=== PATIENT | male | born 1950 | race Caucasian/White ===

== ENCOUNTER → 2017-04-11 | Outpatient (CLI) | payer BC | LOC: FIMAGING 09:45 | PROVIDERS: ATTEND Neurological Surgery | DX: M51.36 Other intervertebral disc degeneration, lumbar region (principal); M25.78 Osteophyte, vertebrae ==

== ENCOUNTER 2017-04-19 07:30 | Inpatient (IN) | payer BC, OTHER ==
[~2017-04-19 07:30] MED LIST: TRANEXAMIC ACID 1,000 MG in NS 100 ML IV ONE
[2017-04-19] MEDS ORDERED: morphINE PF 5 MG/10 ML INJ IT ONE (07:51)
[2017-04-19] MEDS ORDERED: ACETAMINOPHEN 500 MG TAB PO ONE (07:51)
[2017-04-19] MEDS ORDERED: fentaNYL 100 MCG/2 ML INJ IT ONE (07:51)
[2017-04-19] MEDS ORDERED: GABAPENTIN 300 MG CAP PO ONE (07:51)
[2017-04-19] MEDS ORDERED: LIDOCAINE 1% 2 ML INJ ID PRN (07:52)
[2017-04-19] MEDS ORDERED: LR 1,000 ML IV ONE (07:52)
[2017-04-19] MEDS ORDERED: THROMBIN (BOVINE) 20,000 UNIT VIAL TP ONE (08:11)
[2017-04-19] MEDS ORDERED: BUPIVACAINE 0.25% 30 ML SDV ONE ×3 (08:12→16:36)
[2017-04-19] MEDS ORDERED: fentaNYL 100 MCG/2 ML INJ ONE ×6 (08:12→19:30)
[2017-04-19] MEDS ORDERED: CITRATE DEXTROSE SOLN 500 ML BAG ONE ×3 (08:12→16:00)
[2017-04-19] MEDS ORDERED: BACITRACIN 50,000 UNITS/10 ML SYR IRR ONE ×4 (08:13→16:21)
--- NOTE | 2017-04-19 08:14 | PDANEPAE ---
ANE History of Present Illness 66 year old male w/ PMHx of HTN (on Carvedilol), history of bilateral lower extremity edema (on lasix), obesity, FARRAH (on BiPAP), skin cancer (s/p Mohs), restless leg syndrome, gout & lumbar radiculopathy presents for TLIF, laminectomy, fusion for L2-L5. ANE Past Medical History - Cardiovascular History Hx Hypertension: Yes Hx Arrhythmias: No Hx Chest Pain: No Hx Coronary Artery / Peripheral Vascular Disease: No Hx CHF / Valvular Disease: No Hx Palpitations: No Cardiovascular History Comment: TY LOWER EXT SWELLING - Pulmonary History Hx COPD: No Hx Asthma/Reactive Airway Disease: No Hx Recent Upper Respiratory Infection: No Hx Oxygen in Use at Home: No Hx Sleep Apnea: Yes Pulmonary History Comment: FARRAH USES B-PAP INSTRUCTED TO BRING DOS - Neurologic History Hx Cerebrovascular Accident: No Hx Seizures: No Hx Dementia: No Neurologic History Comment: Benign positional vertigo. Restless Leg Syndrome - Endocrine History Hx Diabetes: No Hypothyroid: No Hyperthyroid: No Obesity: moderate - Renal History Hx Renal Disorders: No - Liver History Hx Hepatic Disorders: No - Neurological & Psychiatric Hx Hx Neurological and Psychiatric Disorders: No - Cancer History Hx Cancer: Yes Cancer History Comment: SKIN-RECENT LT ANKLE MOH'S PROCEDURE - Congenital Disorder History Hx Congenital Disorders: No - GI History GERD: no Hx Gastrointestinal Disorders: No - Other Health History Other Health History: RESTLESS LEG. GOUT - Chronic Pain History Chronic Pain: Yes (RT UPPER HIP AND THIGH) - Surgical History Prior Surgeries: RT CATARACT. LT ANKLE MOH'S PROCEDURE. 2 LUMBAR LAMINECTOMY. COLONOSCOPY. LEFT TOTAL KNEE 2004 ANE Review of Systems Review of Systems: - Exercise capacity Exercise capacity: >=4 METS METS (RN): 4 METS - Systems Neurological: Reports: paresthesia (Numbness / tingling / pain mostly on right low back) ANE Patient History - Allergies Allergies/Adverse Reactions: codeine Allergy (Verified 04/18/17 12:06) NAUSEA Sulfa (Sulfonamide Antibiotics) Allergy (Verified 04/18/17 12:06) Rash - Home Medications Home medications: home medication list seen and reviewed Home Medications: Escitalopram Oxalate [Lexapro 10 MG (RX)] 10 mg PO DAILY06 11/09/11 [Last Taken 04/19/17] Eszopiclone [Lunesta] 3 mg PO HS 11/09/11 [Last Taken 04/18/17] Glucosamine Sulfate Dipot Chlr [Glucosamine] mg PO DAILY 11/09/11 [Last Taken ] Multivitamin [Flintstones] 1 each PO DAILY 11/09/11 [Last Taken 04/15/17] Pramipexole Di-HCl [Mirapex ER] mg PO BID 11/09/11 [Last Taken 04/19/17] Allopurinol DAILY06 04/18/17 [Last Taken 04/19/17] Aspirin 81mg (*) DAILY 04/18/17 [Last Taken 04/12/17] Atorvastatin Calcium HS 04/18/17 [Last Taken 04/18/17] Carvedilol BID 04/18/17 [Last Taken 04/19/17] Furosemide BID 04/18/17 [Last Taken 04/19/17] - NPO status NPO Status: no food or drink >8 hours - Anes Hx Anes Hx: no prior problems - Smoking Hx Smoking Status: Never smoked Marijuana use: No - Alcohol Use Alcohol Use: Occasionally - Family Anes Hx Family Anes Hx: neg - N/A ANE Labs/Vital Signs - Labs Result Diagrams: 04/19/17 08:30 04/19/17 08:30 - Vital Signs Vital Signs: reviewed preoperatively; see RN documention for details Height: 185.42 cm Weight: 133.81 kg ANE Physical Exam - Airway Neck exam: FROM, increased neck circumference Mallampati Score: Class 2 Mouth exam: guardado Mouth image: 1 - Small inferior lateral tooth defect - Pulmonary Pulmonary: no respiratory distress - Cardiovascular Cardiovascular: regular rate and rhythym - ASA Status ASA Status: III ANE Anesthesia Plan Anesthesia Plan: general endotracheal anesthesia Lines/Monitors: arterial line Total IV Anesthesia: No
[2017-04-19] MEDS ORDERED: REMIFENTANIL HCL 1 MG VIAL ONE ×10 (08:26→16:50)
[2017-04-19] MEDS ORDERED: PROPOFOL/EMULSION 500 MG/50 ML BOTTLE IV ONE ×10 (08:26→16:50)
[2017-04-19] MEDS ORDERED: PROPOFOL 200 MG/20 ML VIAL ONE (08:26)
[2017-04-19] MEDS ORDERED: TRANEXAMIC ACID 1,000 MG in NS 100 ML IV ONE (08:45)
[2017-04-19 08:52] LABS: PLATELET COUNT 159 10^3/uL (150-400)
[2017-04-19] MEDS ORDERED: MIDAZOLAM 2 MG/2 ML VIAL IVP ONE (08:55)
[2017-04-19] MEDS ORDERED: LIDOCAINE 2% 5 ML SDV ONE (09:00)
[2017-04-19] MEDS ORDERED: ROCURONIUM 50 MG/5 ML VIAL ONE (09:00)
[2017-04-19] MEDS ORDERED: PHENYLEPHRINE 10 MG/ML SDV ONE (09:02)
[2017-04-19] MEDS: ceFAZolin 2 GM/SWFI 2 GM/20 ML SYR IVP ONE ×2 (09:57→11:04)
[2017-04-19] MEDS ORDERED: PHENYLEPHRINE HCL 100 MCG/ML SYR ONE (09:59)
[2017-04-19] MEDS ORDERED: epHEDrine SULFATE 10 MG/ML SYR ONE (09:59)
[2017-04-19] MEDS ORDERED: TRANEXAMIC ACID 3,000 MG/50 ML BAG IRR ONE (11:14)
--- NOTE | 2017-04-19 12:02 | PDHPUP ---
History & Physical Update H&P update statement: This history and physical update is based on an assessment of the patient which was completed after admission or registration (within 24 hours), but prior to the surgery/procedure. H&P update: no change in patient's condition since H&P completed
[2017-04-19] MEDS ORDERED: TRANEXAMIC ACID 1,000 MG/10 ML VIAL ONE (12:10)
[2017-04-19] MEDS ORDERED: ceFAZolin 1 GM VIAL ONE ×3 (12:10)
[2017-04-19] MEDS ORDERED: ONDANSETRON 4 MG/2 ML VIAL IVP PRN ×2 (14:26→17:34)
[2017-04-19] MEDS ORDERED: NALOXONE HCL 0.4 MG/ML INJ IVP PRN ×2 (14:26→17:34)
[2017-04-19] MEDS ORDERED: LR 500 ML IV PRN (14:26)
[2017-04-19] MEDS ORDERED: OXYCODONE/APAP 5/325 TAB PO PRN (14:26)
[2017-04-19] MEDS ORDERED: ceFAZolin 2 GM/SWFI 20 ML SYR IVP ONE (14:58)
[2017-04-19] MEDS ORDERED: HYDROmorphONE/DILAUDID 2 MG/ML INJ ONE (17:04)
[2017-04-19] MEDS ORDERED: BACITRACIN ZINC 14.2 GM OINTTUBE TP ONE (17:33)
--- NOTE | 2017-04-19 17:33 | POSTOPPROG ---
Post Op Note Date of Operation: 04/19/17 Surgeon: Phoenix Merino [facility] Nurse Practitioner: Jamison Anesthesiologist: Nain Anesthesia: GET(General Endotracheal) Pre-op Diagnosis: Lumbar DJD/stenosis, L2-5 Post-op Diagnosis: same Indication: right quad weakness, back pain Procedure: T12-L5 fusion, L2/3,3/4,4/5 TLIF Findings: severe DJD/stenosis Inf/Abcess present in the surg proc area at time of surgery?: No EBL: 500-1000 Complications: None Drains: Jose Martin Tai (to bulb suction)
[2017-04-19] MEDS ORDERED: PROMETHAZINE HCL 25 MG/ML INJ IVP PRN (17:34)
[2017-04-19] MEDS ORDERED: HYDROmorphONE/DILAUDID 1 MG/ML INJ IVP PRN (17:34)
--- NOTE | 2017-04-19 17:55 | SOAPPROG ---
SOAP Progress Note Assessment/Plan: POST OP CHECK: Assessment: doing well SP T12-L5 fusion Plan: CPM in PACU and transfer to floor per protocol PANKAJ to bulb suction transfer to floor per protocol 04/19/17 17:52 Subjective: eyes open, groggy. Objective: Vital Signs Temp Pulse Resp BP Pulse Ox 69 16 135/75 H 93 04/19/17 07:57 04/19/17 07:57 04/19/17 07:57 04/19/17 07:57 Laboratory Results 04/19/17 08:30 04/19/17 08:30 Vitals: BP: 144/61 HR: 56 O2: 98% Neuro: PERRLA Moving both feet to stimulation, sens +LT follows commands with prompting, slowly ICD10 Worksheet Patient Problems: Problems Problem Status Onset Lumbar canal stenosis Acute - ICD10 Problem Qualifiers (1) Lumbar canal stenosis
[2017-04-19] MEDS ORDERED: HYDROmorphONE/DILAUDID 1 MG/ML INJ ONE (18:08)
[2017-04-19] MEDS: fentaNYL 100 MCG/2 ML INJ IVP PRN ×3 (18:09→19:32)
[2017-04-19] MEDS: HYDROmorphONE/DILAUDID 1 MG/ML INJ IVP PRN ×5 (18:14→19:18)
--- NOTE | 2017-04-19 18:14 | GOP ---
[f rep st] OPERATIVE REPORT DATE OF OPERATION: 04/19/2017 SURGEON: Phoenix Merino MD ADAPTIVE PHYSICAL EDUCATION SPECIALIST: Chris Swift, DOLORES. ANESTHESIA: General endotracheal. PREOPERATIVE DIAGNOSIS: 1. Intractable low back pain. 2. Right greater than left lower extremity radiculopathy with profound quadriceps weakness. 3. Failed conservative care with progressive degenerative scoliosis with critical spinal stenosis an d lateral recess impingement. 4. Loss of normal sagittal alignment with relative kyphosis of the lumbar spine. POSTOPERATIVE DIAGNOSIS: 1. Intractable low back pain. 2. Right greater than left lower extremity radiculopathy with profound quadriceps weakness. 3. Failed conservative care with progressive degenerative scoliosis with critical spinal stenosis an d lateral recess impingement. 4. Loss of normal sagittal alignment with relative kyphosis of the lumbar spine. PROCEDURE PERFORMED: 1. Redo L2-3, L3-4, and L4-5 laminectomies and far lateral transpedicular decompressions for decompr ession of bilateral neural foramen/nerve roots, central canal, and thecal sac. 2. T12 through L5 posterior segmental (pedicle screw and axle device) fixation and posterolateral fu sangeeta with local autograft and bone morphogenic protein. 3. L2-3, L3-4, and L4-5 posterior/transforaminal lumbar interbody fusion with 2 structural PEEK inte rbody spacers, local autograft, and bone morphogenic protein at each level. 4. Use of intraoperative microscopy, fluoroscopy, and computer volumetric stereotactic navigation wi th intraoperative neurophysiologic testing. 5. Injection of intrathecal narcotic analgesics. 6. Subcutaneous and intramuscular local anesthesia for postoperative pain control. FINDINGS: ESTIMATED BLOOD LOSS: 700 cc. INDICATIONS: The patient is a morbidly obese 66-year-old man with intractable low back pain and righ t greater than left lower extremity radicular discomfort and profound right leg weakness with a histo ry of a multilevel lumbar laminectomy from L2-L5 resulting in instability and iatrogenic and degenera tive scoliosis with critical spinal stenosis, lateral recess impingement, and loss of normal sagittal alignment with relative kyphosis of his lumbar spine. He presents now for multilevel surgical decom pression, stabilization, and realignment. DESCRIPTION OF PROCEDURE: After informed consent was obtained, the patient was taken to the operatin g room and placed in the prone position on the Jose Martin table. The thoracolumbosacral areas were prep ped and draped in a sterile fashion. After fluoroscopic localization of the correct levels, the subc utaneous and intramuscular tissues were infiltrated with local anesthesia. A midline linear incision was then created from approximately T12-L5. This was carried down to the fascial layer, which was t hen incised using monopolar electrocautery and carried in a subperiosteal plane along the spinous pro cesses and out the lamina bilaterally. Note that there was an extensive amount of scar tissue and di storted anatomy as well as the morbid obesity that made it an extremely difficult and time consuming exposure, but I was able to eventually dissect out the proper anatomy and following this, brought in the microscope and performed right-sided far lateral transpedicular decompressions with redo laminect omies from L2-L5. Again, there was an extensive amount of scar tissue, and this required very meticu lous dissection under high-power microscopy, but I was able to achieve an excellent central canal dec ompression as well the lateral recesses and neural foramen with complete unroofing of the facet joint s at L2-3, L3-4, and L4-5 on the right. This was much more extensive than that required for the whipple sforaminal lumbar interbody fusion, but it was necessary to achieve adequate decompression. Followin g this, the microscope was removed and the O-arm neuronavigational system brought in and using comput er volumetric stereotactic navigation, pedicle screws were placed at T12, L1, L2, L3, L4, and L5 bila terally. Each individual screw was tested neurophysiologically with monopolar electrode stimulation and interpretation of the potentials by the surgeon. Individual rods were then placed, first at L4-5 , then at L3-4, then at L2-3, during which time, distraction was created across the interspaces and c omplete diskectomies were performed with preparation of endplates and placement of 2 structural PEEK interbody spacers, local autograft, and bone morphogenic protein at each level for L2-3, L3-4, and L4 -5 posterior/transforaminal lumbar interbody fusions. The small rods were then removed and new rods with maximal lordosis were placed from T12 through L5 with an attempt to recreate as much lordosis as we could without doing an osteotomy. The locking caps were engaged and torqued to the proper specif ication per the edge sander, and an axial device was placed at the T12-L1 level in order to prevent a junctional kyphosis and hardware loosening. Duramorph 200 mcg along with 50 mcg of fentanyl were i njected intrathecally. The remaining local autograft and bone morphogenic protein was then placed ou t laterally from T12 through L5 after extensive decortication of the facet joints and any remaining l caleb EN and transverse processes. Following this, a drain was placed. Meticulous hemostasis was ac hieved. The wound was copiously irrigated with antibiotic irrigation and closed in a layered fashion using interrupted Vicryl sutures followed by Steri-Strips on the skin. COMPLICATIONS: None. DISPOSITION: The patient is currently in the process of being repositioned for extubation. /[id number]/MODL
--- NOTE | 2017-04-19 19:40 | PDHOSCONS ---
Hospitalist Consult Hospitalist Consult: We have been asked to consult on this pt by Dr. Merino for medical management. He is a 66 yo M with MMP including chronic low back pain who earlier today had T12-L5 fusion. He has a hx of obesity, well controlled HTN, pedal edema of unclear etiology on Lasix, Gout, depression, FARRAH on CPAP HS. History is obtained from the medical chart as well as the pt's daughter who is an ICU nurse at [employer] [employer]. He is seen postoperatively and is not able to provide this history. He is on a Coreg and Lasix and other medications. Unfortunately, we do not know dosages at this time. She will be providing these to us sometime tonight. She reports a long hx of FARRAH and CPAP use, says HTN has been well controlled. She does report intermittent leg swelling for quite some time. ROS: unable to obtain PMHx: Per above PSH: Total knee - left, L2/L5 laminectomy, cataracts SocHx: No T/E/I FmHx: NC Labs/Studies: CBC unremarkable BMP: unremarkable Exam: VSS APPEARS TO BE IN PAIN PEERL No obvious JVD RRR Decrease lung sounds obese, NT/ND Trace LE edema Mildly sedated skin warm #s/p T12-L5 fusion #HTN #Pedal Edema #FARRAH, CPAP #Depression Plan: -we will wait until the medication list is completed and we can restart BB and diuretics as needed -Hold Aspirin -Antidepressant has already been restarted, make sure to continue this. Per the daughter he becomes severely depressed if he does not take it daily -check TTE given hx of pedal edema, FARRAH, and no reported past Echo -post op care per primary -Pain mgmt -DVT proph per primary Thank you for this consult. We will follow along with you.
[2017-04-19] MEDS: HYDROmorphone HCL/NS/PF 0.4 MG/2 ML SYR IVP PRN ×2 (20:11→21:13)
[2017-04-19] MEDS ORDERED: DIAZEPAM 10 MG/2 ML SYR IVP PRN (20:40)
[2017-04-19] MEDS: NS 1,000 ML IV SCH (21:13)
[2017-04-19] MEDS: ceFAZolin 2 GM/DEXTROSE 100 ML IV SCH (23:08)
[2017-04-19] MEDS: HYDROmorphONE/DILAUDID 6 MG/30 ML PCA IV PRN (23:24)
[2017-04-20] MEDS: ESCITALOPRAM OXALATE 10 MG TAB PO SCH (05:47)
[2017-04-20] MEDS: ceFAZolin 2 GM/DEXTROSE 100 ML IV SCH ×2 (05:47→14:45)
--- NOTE | 2017-04-20 07:54 | SOAPPROG ---
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 - medicine assistance appreciated for management of medical problems - LSO brace when OOB - post-op xrays today - drain output 430 yesterday, will leave another day - PT/OT, rehab eval - please call with any new neurologic changes 04/20/17 07:51 Subjective: has some complaints of ulnar numbness on both hands, likely positioning related Objective: Vital Signs Temp Pulse Resp BP Pulse Ox 36.7 C 65 18 146/88 H 97 04/20/17 05:33 04/20/17 05:33 04/20/17 05:33 04/20/17 05:33 04/20/17 05:33 Laboratory Results 04/19/17 08:30 04/19/17 08:30 04/19/17 04/20/17 04/21/17 05:59 05:59 04:59 Intake Total 4475 Output Total 2740 100 Balance 1735 -100 AAOx3, full strength and sensation except some numbness in bilateral ulnar distribution in hands, dressings c/d/i - Pending Discharge Pending Discharge Within 24 Hours: No Pending Discharge Within 48 Hours: Yes Pending Discharge Date: 04/22/17 Pending Discharge Time: 11:00 ICD10 Worksheet Patient Problems: Problems Problem Status Onset Lumbar canal stenosis Acute
--- NOTE | 2017-04-20 07:54 | SOAPPROG ---
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 - medicine assistance appreciated for management of medical problems - LSO brace when OOB - post-op xrays today - drain output 430 yesterday, will leave another day - PT/OT, rehab eval - please call with any new neurologic changes 04/20/17 07:51 Subjective: has some complaints of ulnar numbness on both hands, likely positioning related Objective: Vital Signs Temp Pulse Resp BP Pulse Ox 36.7 C 65 18 146/88 H 97 04/20/17 05:33 04/20/17 05:33 04/20/17 05:33 04/20/17 05:33 04/20/17 05:33 Laboratory Results 04/19/17 08:30 04/19/17 08:30 04/19/17 04/20/17 04/21/17 05:59 05:59 04:59 Intake Total 4475 Output Total 2740 100 Balance 1735 -100 AAOx3, full strength and sensation except some numbness in bilateral ulnar distribution in hands, dressings c/d/i - Pending Discharge Pending Discharge Within 24 Hours: No Pending Discharge Within 48 Hours: Yes Pending Discharge Date: 04/22/17 Pending Discharge Time: 11:00 ICD10 Worksheet Patient Problems: Problems Problem Status Onset Lumbar canal stenosis Acute
--- NOTE | 2017-04-20 07:54 | SOAPPROG ---
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 - medicine assistance appreciated for management of medical problems - LSO brace when OOB - post-op xrays today - drain output 430 yesterday, will leave another day - PT/OT, rehab eval - please call with any new neurologic changes 04/20/17 07:51 Subjective: has some complaints of ulnar numbness on both hands, likely positioning related Objective: Vital Signs Temp Pulse Resp BP Pulse Ox 36.7 C 65 18 146/88 H 97 04/20/17 05:33 04/20/17 05:33 04/20/17 05:33 04/20/17 05:33 04/20/17 05:33 Laboratory Results 04/19/17 08:30 04/19/17 08:30 04/19/17 04/20/17 04/21/17 05:59 05:59 04:59 Intake Total 4475 Output Total 2740 100 Balance 1735 -100 AAOx3, full strength and sensation except some numbness in bilateral ulnar distribution in hands, dressings c/d/i - Pending Discharge Pending Discharge Within 24 Hours: No Pending Discharge Within 48 Hours: Yes Pending Discharge Date: 04/22/17 Pending Discharge Time: 11:00 ICD10 Worksheet Patient Problems: Problems Problem Status Onset Lumbar canal stenosis Acute
[2017-04-20 07:59] LABS: PLATELET COUNT 158 10^3/uL (150-400)
[2017-04-20] MEDS: ENOXAPARIN 40 MG/0.4 ML SYR SC SCH (09:47)
[2017-04-20] MEDS: METHOCARBAMOL 750 MG TAB PO SCH ×3 (09:47→22:24)
[2017-04-20] MEDS: ACETAMINOPHEN 325 MG TAB PO PRN ×2 (09:48→16:03)
[2017-04-20] MEDS: morphINE SR 15 MG TAB PO SCH ×2 (09:52→22:25)
--- NOTE | 2017-04-20 10:09 | ECHO ---
[email or web address] [address] [address] Main: [phone] Fax: Transthoracic Echocardiogram Name: ALEXANDRA BAER MR#: [id number] Study Date: 04/20/2017 Study Time: 09:03 AM Date of : 1950 Age: 66 year(s) Height: 185.4 cm (73 in.) Weight: 133.81 kg (295 lb.) BSA: 2.54 m2 Gender: Male Examination: Echo Indication: ?CHF Image Quality: Technically Difficult Contrast: Requested by: Grabiel Joseph BP: 132 mmHg/74 mmHg Heart Rate: Rhythm: Indication: ?CHF Procedure Staff Public Affairs Specialist: Frieda Joseph Reading Physician: Jeet Trammell Requesting Provider: Conclusions: Normal global systolic LV function. EF is 61 %. Unable to assess diastolic dysfunction. Mitral valve not well visualized. Aortic valve is not well visualized. Tricuspid valve not well visualized. Pulmonary valve not well visualized. Technically difficult study, cannot rule out regional wall motion abnormalities. Measurements: Chambers Valvular Assessment AV/MV Valvular Assessment TV/PV Normal Normal Normal Name Value Range Name Value Range Name Value Range Ao Eve (MM): 3.3 cm (2.2 cm-3.7 AV Vmax: 1.01 m/s (1 m/s-1.7 PV Vmax: 1.01 m/s (0.6 m/s-0.9 cm) m/s) m/s) IVSd (2D): 1.1 cm (0.6 cm-1.1 AV maxP mmHg ( - ) PV PGmax: 4 mmHg ( - ) cm) LVOT Vmax: 0.82 m/s (0.7 m/s-1.1 LVDd (2D): 5.0 cm (4.2 cm-5.9 m/s) cm) MV E Vmax: 0.50 m/s ( - ) LVDs (2D): 3.4 cm (2.1 cm-4 MV A Vmax: 0.78 m/s ( - ) cm) MV E/A: 0.64 ( - ) LVPWd (2D): 1.0 cm (0.6 cm-1 cm) LVEF (2D): 61 (>=54 %) Continued Measurements: Valvular Assessment AV/MV Name Value MV DecTime: 254 m/s Patient: ALEXANDRA BAER Study Date: 04/20/2017 Page 1 of 2 09:03 AM Additional Vessels Name Value Ao Ascendin.1 cm Findings: Left Ventricle: Normal size left ventricle. Borderline concentric LV hypertrophy. Normal global systolic LV function. EF is 61 %. Unable to assess for regional wall motion abnormalites due to poor endocardial definition. Unable to assess diastolic dysfunction. Right Ventricle: Grossly normal RV size and function.. Left Atrium: Grossly normal LA size.. Right Atrium: Grossly normal RA size.. Mitral Valve: Mitral valve not well visualized. There is no mitral valve regurgitation. Aortic Valve: Aortic valve is not well visualized. There is no aortic valve regurgitation. No aortic valve stenosis is present. Tricuspid Valve: Tricuspid valve not well visualized. There is no tricuspid valve regurgitation. Pulmonary artery pressure is not obtained due to inadequate TR jet. Pulmonic Valve: Pulmonary valve not well visualized. IVC: The IVC is normal sized. Pericardium: No pericardial effusion. Exam Comments: Patient supine due to recent back surgery.. (No Signature Object) Patient: ALEXANDRA BAER Study Date: 04/20/2017 Page 2 of 2 09:03 AM [id number]
--- NOTE | 2017-04-20 10:09 | ECHO ---
[email or web address] [address] [address] Main: [phone] Fax: Transthoracic Echocardiogram Name: ALEXANDRA BAER MR#: [id number] Study Date: 04/20/2017 Study Time: 09:03 AM Date of : 1950 Age: 66 year(s) Height: 185.4 cm (73 in.) Weight: 133.81 kg (295 lb.) BSA: 2.54 m2 Gender: Male Examination: Echo Indication: ?CHF Image Quality: Technically Difficult Contrast: Requested by: Grabiel Joseph BP: 132 mmHg/74 mmHg Heart Rate: Rhythm: Indication: ?CHF Procedure Staff Regulatory Scientist: Frieda Joseph Reading Physician: Jeet Trammell Requesting Provider: Conclusions: Normal global systolic LV function. EF is 61 %. Unable to assess diastolic dysfunction. Mitral valve not well visualized. Aortic valve is not well visualized. Tricuspid valve not well visualized. Pulmonary valve not well visualized. Technically difficult study, cannot rule out regional wall motion abnormalities. Measurements: Chambers Valvular Assessment AV/MV Valvular Assessment TV/PV Normal Normal Normal Name Value Range Name Value Range Name Value Range Ao Eve (MM): 3.3 cm (2.2 cm-3.7 AV Vmax: 1.01 m/s (1 m/s-1.7 PV Vmax: 1.01 m/s (0.6 m/s-0.9 cm) m/s) m/s) IVSd (2D): 1.1 cm (0.6 cm-1.1 AV maxP mmHg ( - ) PV PGmax: 4 mmHg ( - ) cm) LVOT Vmax: 0.82 m/s (0.7 m/s-1.1 LVDd (2D): 5.0 cm (4.2 cm-5.9 m/s) cm) MV E Vmax: 0.50 m/s ( - ) LVDs (2D): 3.4 cm (2.1 cm-4 MV A Vmax: 0.78 m/s ( - ) cm) MV E/A: 0.64 ( - ) LVPWd (2D): 1.0 cm (0.6 cm-1 cm) LVEF (2D): 61 (>=54 %) Continued Measurements: Valvular Assessment AV/MV Name Value MV DecTime: 254 m/s Patient: ALEXANDRA BAER Study Date: 04/20/2017 Page 1 of 2 09:03 AM Additional Vessels Name Value Ao Ascendin.1 cm Findings: Left Ventricle: Normal size left ventricle. Borderline concentric LV hypertrophy. Normal global systolic LV function. EF is 61 %. Unable to assess for regional wall motion abnormalites due to poor endocardial definition. Unable to assess diastolic dysfunction. Right Ventricle: Grossly normal RV size and function.. Left Atrium: Grossly normal LA size.. Right Atrium: Grossly normal RA size.. Mitral Valve: Mitral valve not well visualized. There is no mitral valve regurgitation. Aortic Valve: Aortic valve is not well visualized. There is no aortic valve regurgitation. No aortic valve stenosis is present. Tricuspid Valve: Tricuspid valve not well visualized. There is no tricuspid valve regurgitation. Pulmonary artery pressure is not obtained due to inadequate TR jet. Pulmonic Valve: Pulmonary valve not well visualized. IVC: The IVC is normal sized. Pericardium: No pericardial effusion. Exam Comments: Patient supine due to recent back surgery.. (No Signature Object) Patient: ALEXANDRA BAER Study Date: 04/20/2017 Page 2 of 2 09:03 AM [id number]
--- NOTE | 2017-04-20 10:09 | ECHO ---
[email or web address] [address] [address] Main: [phone] Fax: Transthoracic Echocardiogram Name: ALEXANDRA BAER MR#: [id number] Study Date: 04/20/2017 Study Time: 09:03 AM Date of : 1950 Age: 66 year(s) Height: 185.4 cm (73 in.) Weight: 133.81 kg (295 lb.) BSA: 2.54 m2 Gender: Male Examination: Echo Indication: ?CHF Image Quality: Technically Difficult Contrast: Requested by: Grabiel Joseph BP: 132 mmHg/74 mmHg Heart Rate: Rhythm: Indication: ?CHF Procedure Staff Stock Manager: Frieda Joseph Reading Physician: Jeet Trammell Requesting Provider: Conclusions: Normal global systolic LV function. EF is 61 %. Unable to assess diastolic dysfunction. Mitral valve not well visualized. Aortic valve is not well visualized. Tricuspid valve not well visualized. Pulmonary valve not well visualized. Technically difficult study, cannot rule out regional wall motion abnormalities. Measurements: Chambers Valvular Assessment AV/MV Valvular Assessment TV/PV Normal Normal Normal Name Value Range Name Value Range Name Value Range Ao Eve (MM): 3.3 cm (2.2 cm-3.7 AV Vmax: 1.01 m/s (1 m/s-1.7 PV Vmax: 1.01 m/s (0.6 m/s-0.9 cm) m/s) m/s) IVSd (2D): 1.1 cm (0.6 cm-1.1 AV maxP mmHg ( - ) PV PGmax: 4 mmHg ( - ) cm) LVOT Vmax: 0.82 m/s (0.7 m/s-1.1 LVDd (2D): 5.0 cm (4.2 cm-5.9 m/s) cm) MV E Vmax: 0.50 m/s ( - ) LVDs (2D): 3.4 cm (2.1 cm-4 MV A Vmax: 0.78 m/s ( - ) cm) MV E/A: 0.64 ( - ) LVPWd (2D): 1.0 cm (0.6 cm-1 cm) LVEF (2D): 61 (>=54 %) Continued Measurements: Valvular Assessment AV/MV Name Value MV DecTime: 254 m/s Patient: ALEXANDRA BAER Study Date: 04/20/2017 Page 1 of 2 09:03 AM Additional Vessels Name Value Ao Ascendin.1 cm Findings: Left Ventricle: Normal size left ventricle. Borderline concentric LV hypertrophy. Normal global systolic LV function. EF is 61 %. Unable to assess for regional wall motion abnormalites due to poor endocardial definition. Unable to assess diastolic dysfunction. Right Ventricle: Grossly normal RV size and function.. Left Atrium: Grossly normal LA size.. Right Atrium: Grossly normal RA size.. Mitral Valve: Mitral valve not well visualized. There is no mitral valve regurgitation. Aortic Valve: Aortic valve is not well visualized. There is no aortic valve regurgitation. No aortic valve stenosis is present. Tricuspid Valve: Tricuspid valve not well visualized. There is no tricuspid valve regurgitation. Pulmonary artery pressure is not obtained due to inadequate TR jet. Pulmonic Valve: Pulmonary valve not well visualized. IVC: The IVC is normal sized. Pericardium: No pericardial effusion. Exam Comments: Patient supine due to recent back surgery.. (No Signature Object) Patient: ALEXANDRA BAER Study Date: 04/20/2017 Page 2 of 2 09:03 AM [id number]
--- NOTE | 2017-04-20 11:09 | HOSPPROG ---
Hospitalist Progress Note Assessment/Plan: T12-L5 fusion - POD #1. Doing well. Post-op care per ortho. Hypertension - fair control for post-op status. Cont outpt meds once med rec completed (requested pharmacy complete) FARRAH - cont CPAP Pedal edema - echo pending Depression - cont SSRI Full code DVT PPLX - Lovenox Dispo - cont inpt Subjective: Pt feels "medicated". He is up in chair. Pain controlled. No fevers. Eating ok. Objective: Vital Signs Temp Pulse Resp BP Pulse Ox 36.7 C 77 12 140/76 H 98 04/20/17 05:33 04/20/17 09:48 04/20/17 09:48 04/20/17 09:48 04/20/17 09:48 Laboratory Results 04/20/17 05:03 04/20/17 05:03 04/19/17 04/20/17 04/21/17 05:59 05:59 04:59 Intake Total 4475 Output Total 2740 100 Balance 1735 -100 - Physical Exam Constitutional: no apparent distress Eyes: PERRL Ears, Nose, Mouth, Throat: moist mucous membranes Cardiovascular: regular rate and rhythym Respiratory: no respiratory distress, clear to auscultation Gastrointestinal: normoactive bowel sounds, soft, non-tender abdomen Skin: warm Musculoskeletal: full muscle strength, other (1+ pedal edema, symmetric) Neurologic: AAOx3 Psychiatric: interacting appropriately ICD10 Worksheet Patient Problems: Problems Problem Status Onset Lumbar canal stenosis Acute
[2017-04-20] MEDS: oxyCODONE IR 5 MG TAB PO PRN (14:44)
[2017-04-20] MEDS: HYDROmorphone HCL/NS/PF 0.4 MG/2 ML SYR IVP PRN ×2 (16:03→16:20)
[2017-04-20] MEDS: DIAZEPAM 5 MG TAB PO PRN (16:06)
[2017-04-20] MEDS: HYDROmorphONE/DILAUDID 6 MG/30 ML PCA IV PRN (18:11)
[2017-04-20] MEDS: CARVEDILOL 25 MG TAB PO SCH (18:11)
--- NOTE | 2017-04-20 18:15 | ASMTCMCOM ---
CM Note CM Note Notes: Reviewed chart for discharge plan, pt's progress. Pt s/p T12-L5 fusion, POD 1. Pt lives w/ his dghtr and son-in-law. PT/OT rec home health care. CM unable to meet w/ pt today to discuss options; will follow up on [facility] 04/21/17. Current Discharge Plan: Home w/ Home Health Care Date Signed: 04/20/2017 06:15 PM Electronically Signed By:Leann Morgan RN
[2017-04-20] MEDS ORDERED: POLYETHYLENE GLYCOL 3350 17 GM PKT PO PRN (19:20)
[2017-04-20] MEDS ORDERED: BISACODYL 10 MG SUPP PR PRN (19:20)
[2017-04-20] MEDS ORDERED: LACTULOSE 20 GM/30 ML UDCUP PO PRN (19:20)
[2017-04-20] MEDS ORDERED: MAGNESIUM HYDROXIDE 30 ML UDCUP PO PRN (19:20)
[2017-04-20] MEDS: SENNOSIDES/DOCUSATE SODIUM TAB PO SCH (22:23)
[2017-04-20] MEDS: PRAMIPEXOLE 0.25 MG TAB PO SCH (22:24)
[2017-04-20] MEDS: NS 1,000 ML IV SCH (23:55)
[2017-04-21] MEDS: ESCITALOPRAM OXALATE 10 MG TAB PO SCH (05:12)
[2017-04-21] MEDS: oxyCODONE IR 5 MG TAB PO PRN ×4 (05:13→22:04)
[2017-04-21] MEDS: PRAMIPEXOLE 0.25 MG TAB PO SCH ×4 (05:13→20:13)
[2017-04-21] MEDS: METHOCARBAMOL 750 MG TAB PO SCH ×3 (08:14→22:05)
[2017-04-21] MEDS: morphINE SR 15 MG TAB PO SCH ×2 (08:15→20:13)
[2017-04-21] MEDS: ENOXAPARIN 40 MG/0.4 ML SYR SC SCH (08:15)
[2017-04-21] MEDS: CARVEDILOL 25 MG TAB PO SCH ×2 (08:15→17:05)
[2017-04-21] MEDS: ATORVASTATIN CALCIUM 20 MG TAB PO SCH (08:15)
[2017-04-21] MEDS: ALLOPURINOL 300 MG TAB PO SCH (08:15)
[2017-04-21] MEDS: SENNOSIDES/DOCUSATE SODIUM TAB PO SCH ×2 (08:15→20:13)
[2017-04-21] MEDS: ACETAMINOPHEN 325 MG TAB PO PRN ×3 (08:22→20:13)
[2017-04-21] MEDS: NS 1,000 ML IV SCH (08:25)
[2017-04-21] MEDS ORDERED: FUROSEMIDE 20 MG TAB PO SCH (09:00)
--- NOTE | 2017-04-21 09:08 | SOAPPROG ---
SOAP Progress Note Assessment/Plan: Assessment: POD#2 s/p L2-5 TLIF, doing well Plan: - doing well overall, pain control reasonable on oral meds - medicine assistance appreciated for management of medical problems - LSO brace when OOB - post-op xrays show intact hardware with good alignment - drain output 580 yesterday, will leave another day, take off suction - PT/OT, rehab eval - please call with any new neurologic changes 04/21/17 09:06 Subjective: still intermittent back pain but overall improving Objective: Vital Signs Temp Pulse Resp BP Pulse Ox 37.0 C 84 13 138/63 H 95 04/21/17 04:00 04/21/17 07:26 04/21/17 07:26 04/21/17 07:26 04/21/17 07:26 Laboratory Results 04/21/17 04:59 04/21/17 04:59 04/20/17 04/21/17 04/22/17 06:59 05:59 05:59 Intake Total 1090 Output Total Balance 1090 AAOx3, full strength and sensation (ulnar numbness improved), no drift, dressing c/d/i - Pending Discharge Pending Discharge Within 24 Hours: No Pending Discharge Within 48 Hours: Yes Pending Discharge Date: 04/23/17 Pending Discharge Time: 11:00 ICD10 Worksheet Patient Problems: Problems Problem Status Onset Lumbar canal stenosis Acute
--- NOTE | 2017-04-21 11:15 | HOSPPROG ---
Hospitalist Progress Note Assessment/Plan: T12-L5 fusion - POD #2. Doing well. Post-op care per ortho. Hypertension - a bit hypotensive up in chair this am, ?orthostatic. -halve coreg, place hold parameters -check orthostatics, if positive will give small fluid bolus -hold lasix ABLA - post-op hgb drop as expected, monitor Thrombocytopenia - new, mild, still >100, monitor FARRAH - cont CPAP Pedal edema - nl LV function on echo, valves not well visualized Depression - cont SSRI Full code DVT PPLX - Lovenox Dispo - cont inpt Subjective: Pt doing ok, eating a snickers bar. SBP was 88 this am up in chair. He endorsed some lightheadedness at that time. No CP, SOB. Pain controlled. Objective: Vital Signs Temp Pulse Resp BP Pulse Ox 37.0 C 84 21 H 88/52 L 92 04/21/17 04:00 04/21/17 10:10 04/21/17 10:10 04/21/17 10:10 04/21/17 10:10 Laboratory Results 04/21/17 04:59 04/21/17 04:59 04/20/17 04/21/17 04/22/17 06:59 05:59 05:59 Intake Total 1090 Output Total 650 Balance 440 - Physical Exam Constitutional: no apparent distress Eyes: PERRL Ears, Nose, Mouth, Throat: moist mucous membranes Cardiovascular: regular rate and rhythym Respiratory: no respiratory distress, reduced air movement Gastrointestinal: normoactive bowel sounds, soft, non-tender abdomen Skin: warm Musculoskeletal: full muscle strength Neurologic: AAOx3 Psychiatric: interacting appropriately ICD10 Worksheet Patient Problems: Problems Problem Status Onset Lumbar canal stenosis Acute
[2017-04-21] MEDS ORDERED: TEARS/DEXTRAN 70/HYPROMELLOSE 15 ML OPHT.BTL EACHEYE PRN (12:01)
--- NOTE | 2017-04-21 16:23 | ASMTCMCOM ---
CM Note CM Note Notes: Pt sleeping all afternoon when CM tried to discuss HC choice. C/M will f/u with pt for DC planning tomorrow. Date Signed: 04/21/2017 04:22 PM Electronically Signed By:Racquel Stacy LCSW
--- NOTE | 2017-04-21 16:28 | POSTANESTH ---
Post Anesthetic Evaluation Cardiovascular Status: Normal, Stable, Similar to Pre-Op Cond Respiratory Status: Normal, Stable, Similar to Pre-op Cond. (Patient does utilize BiPAP for treatment of FARRAH) Level of Consciousness/Mental Status: Can Participate in Eval, Other, See Comment (In PACU, patient mildly disoriented. Patient's daughter brought to bedside to help orient patient. Anesthesiologist stayed with patient in PACU. Patient became appropriate, following commands and moving all extremities. Reporting significant pain.) Pain Control: Inadeq, Add Tx Required (IV fentanyl and hydromorphone made available to CUSTOMER SERVICE LEADER to treat pain as needed. Fine balance between keeping patient's pain under control and causing confusion.) Nausea/Vomiting Control: Adequate, Prn Tx Ordered Complications Possibly Related to Anesthesia: None Noted
--- NOTE | 2017-04-21 16:28 | POSTANESTH ---
Post Anesthetic Evaluation Cardiovascular Status: Normal, Stable, Similar to Pre-Op Cond Respiratory Status: Normal, Stable, Similar to Pre-op Cond. (Patient does utilize BiPAP for treatment of FARRAH) Level of Consciousness/Mental Status: Can Participate in Eval, Other, See Comment (In PACU, patient mildly disoriented. Patient's daughter brought to bedside to help orient patient. Anesthesiologist stayed with patient in PACU. Patient became appropriate, following commands and moving all extremities. Reporting significant pain.) Pain Control: Inadeq, Add Tx Required (IV fentanyl and hydromorphone made available to LINING MAKER HAND to treat pain as needed. Fine balance between keeping patient's pain under control and causing confusion.) Nausea/Vomiting Control: Adequate, Prn Tx Ordered Complications Possibly Related to Anesthesia: None Noted
--- NOTE | 2017-04-21 16:28 | POSTANESTH ---
Post Anesthetic Evaluation Cardiovascular Status: Normal, Stable, Similar to Pre-Op Cond Respiratory Status: Normal, Stable, Similar to Pre-op Cond. (Patient does utilize BiPAP for treatment of FARRAH) Level of Consciousness/Mental Status: Can Participate in Eval, Other, See Comment (In PACU, patient mildly disoriented. Patient's daughter brought to bedside to help orient patient. Anesthesiologist stayed with patient in PACU. Patient became appropriate, following commands and moving all extremities. Reporting significant pain.) Pain Control: Inadeq, Add Tx Required (IV fentanyl and hydromorphone made available to THERMAL INTELLIGENCE ANALYST to treat pain as needed. Fine balance between keeping patient's pain under control and causing confusion.) Nausea/Vomiting Control: Adequate, Prn Tx Ordered Complications Possibly Related to Anesthesia: None Noted
[2017-04-21] MEDS ORDERED: NS 500 ML IV ONE (16:32)
[2017-04-21] MEDS: DIAZEPAM 5 MG TAB PO PRN (20:14)
[2017-04-21] MEDS: HYDROmorphone HCL/NS/PF 0.4 MG/2 ML SYR IVP PRN (22:56)
[2017-04-22] MEDS: oxyCODONE IR 5 MG TAB PO PRN ×5 (01:46→22:01)
[2017-04-22] MEDS: ACETAMINOPHEN 325 MG TAB PO PRN ×4 (01:46→22:01)
[2017-04-22] MEDS: HYDROmorphone HCL/NS/PF 0.4 MG/2 ML SYR IVP PRN ×2 (01:47→05:06)
[2017-04-22] MEDS: ESCITALOPRAM OXALATE 10 MG TAB PO SCH (05:06)
[2017-04-22] MEDS: PRAMIPEXOLE 0.25 MG TAB PO SCH ×4 (05:06→20:35)
[2017-04-22] MEDS: DIAZEPAM 5 MG TAB PO PRN ×2 (06:14→20:35)
[2017-04-22] MEDS: ENOXAPARIN 40 MG/0.4 ML SYR SC SCH (08:16)
[2017-04-22] MEDS: SENNOSIDES/DOCUSATE SODIUM TAB PO SCH ×2 (08:16→20:35)
[2017-04-22] MEDS: ATORVASTATIN CALCIUM 20 MG TAB PO SCH (08:17)
[2017-04-22] MEDS: METHOCARBAMOL 750 MG TAB PO SCH ×3 (08:17→22:01)
[2017-04-22] MEDS: ALLOPURINOL 300 MG TAB PO SCH (08:17)
[2017-04-22] MEDS: CARVEDILOL 25 MG TAB PO SCH ×2 (08:17→17:41)
[2017-04-22] MEDS: morphINE SR 15 MG TAB PO SCH ×2 (08:18→20:35)
--- NOTE | 2017-04-22 08:36 | NEUSURGPN ---
Date of Surgery: 04/19/17 Post Op Day: 3 Assessment/Plan: POD#3 s/p L2-5 TLIF Plan: - doing well overall, had to have IV medications last night. Will increase short acting in effort to reduce IV pain medications -patient with abdominal pain last night, improved this am. Patient states he is passing gas, will change Miralax to scheduled. - medicine assistance appreciated for management of medical problems - LSO brace when OOB - post-op xrays show intact hardware with good alignment - drain output 190 yesterday will leave another day - PT/OT -rehab eval -attempted dc POD#1 and had to replace -DC rosa today, may straight cath if needed - please call with any new neurologic changes Subjective: Patient had abdominal pain last night, improved this am Objective: AxO x3 PERRLA 5/5 BUE, BLE Sensation intact light touch BLE Dressing CDI PANKAJ in place Neuro Check Frequency: per routine Urinary Catheter in Place: Yes Urinary Catheter Indication: Other (Use Comment) (Will dc today, had post op retention POD#1) Catheter Insertion Date: 04/19/17 - Physician Discussed Patient with : Angelique Neurosurgery Physical Exam - Vitals, I&O, Labs I and O 04/21/17 04/22/17 04/23/17 05:59 05:59 05:59 Intake Total 3133 Output Total 3865 Balance -732 Intake: Oral (ml) 1700 IV Intake (ml) 1090 IV Infused (ml) 343 Ns 1,000 ml @ 100 mls/hr 343 IV CONT JOANN Rx#: [id number] Output: Urine (ml) 3675 Catheter 3675 Toilet PANKAJ Drain Output (ml) 190 Posterior Back Jose Martin 190 Tai Other: Number of Voids Toilet Bladder Scan Volume (ml) Catheter Vital Signs Temp Pulse Resp BP Pulse Ox 36.9 C 88 14 156/84 H 99 04/22/17 07:30 04/22/17 07:30 04/22/17 07:30 04/22/17 07:30 04/22/17 07:30 Laboratory Results 04/22/17 04:49 04/21/17 04:59 ICD10 Worksheet Patient Problems: Problems Problem Status Onset Lumbar canal stenosis Acute
[2017-04-22] MEDS: POLYETHYLENE GLYCOL 3350 17 GM PKT PO SCH ×3 (08:55→22:01)
--- NOTE | 2017-04-22 11:57 | HOSPPROG ---
Hospitalist Progress Note Assessment/Plan: T12-L5 fusion - POD #3. Doing well. Post-op care per ortho. Hypertension - no more orthostatic symptoms, but SBP still drops with upright position -cont half dose coreg, place hold parameters -will up-titrate coreg as BP indicated -cont to hold lasix ABLA - post-op hgb drop as expected, monitor Thrombocytopenia - new, mild, still >100, monitor FARRAH - cont CPAP Pedal edema - nl LV function on echo, valves not well visualized Depression - cont SSRI Full code DVT PPLX - Lovenox Dispo - cont inpt Subjective: Pt feels ok, quite fatigued after up to bathroom. Now up in chair. No dizziness or lightheadedness. No fevers/chills. Pain controlled. Objective: Vital Signs Temp Pulse Resp BP Pulse Ox 36.9 C 88 14 156/84 H 99 04/22/17 07:30 04/22/17 07:30 04/22/17 07:30 04/22/17 07:30 04/22/17 07:30 Laboratory Results 04/22/17 04:49 04/21/17 04:59 04/21/17 04/22/17 04/23/17 05:59 05:59 05:59 Intake Total 3133 Output Total 3865 650 Balance -732 -650 - Physical Exam Constitutional: no apparent distress Eyes: PERRL Ears, Nose, Mouth, Throat: moist mucous membranes Cardiovascular: regular rate and rhythym, no murmur, rub, or gallop Respiratory: no respiratory distress Gastrointestinal: normoactive bowel sounds Genitourinary: no bladder fullness Skin: warm Musculoskeletal: full muscle strength Neurologic: AAOx3 Psychiatric: interacting appropriately ICD10 Worksheet Patient Problems: Problems Problem Status Onset Lumbar canal stenosis Acute
--- NOTE | 2017-04-22 12:20 | ASMTCMCOM ---
CM Note CM Note Notes: Therapies rec inpatient rehab, today pt agreeable to inpatient rehab reporting he is not confident going home now. Rehab consult order is in, [facility] Vidales is assessing. CM to follow. Date Signed: 04/22/2017 12:19 PM Electronically Signed By:CRISSY Augustin
--- NOTE | 2017-04-22 15:57 | ASMTCMCOM ---
CM Note CM Note Notes: Pt does not qualify for [facility] inpatient rehab, pt reports he will talk to family about SNF vs. home w [facility]. With pt insurance [facility] are SNF options, pt reports they are both "dumps." [facility] also now takes . CM to follow. Date Signed: 04/22/2017 03:56 PM Electronically Signed By:CRISSY Augustin
--- NOTE | 2017-04-22 15:57 | ASMTCMCOM ---
CM Note CM Note Notes: Pt does not qualify for [facility] inpatient rehab, pt reports he will talk to family about SNF vs. home w [facility]. With pt insurance [facility] and [facility] are SNF options, pt reports they are both "dumps." [facility] also now takes . CM to follow. Date Signed: 04/22/2017 03:56 PM Electronically Signed By:CRISSY Augustin
--- NOTE | 2017-04-22 15:57 | ASMTCMCOM ---
CM Note CM Note Notes: Pt does not qualify for [facility] inpatient rehab, pt reports he will talk to family about SNF vs. home w [facility]. With pt insurance [facility] and [facility] are SNF options, pt reports they are both "dumps." [facility] also now takes . CM to follow. Date Signed: 04/22/2017 03:56 PM Electronically Signed By:CRISSY Augustin
[2017-04-23] MEDS: oxyCODONE IR 5 MG TAB PO PRN ×2 (02:43→16:03)
[2017-04-23] MEDS: DIAZEPAM 5 MG TAB PO PRN (02:43)
[2017-04-23] MEDS: PRAMIPEXOLE 0.25 MG TAB PO SCH ×3 (05:28→14:58)
[2017-04-23] MEDS: ACETAMINOPHEN 325 MG TAB PO PRN ×2 (05:29→11:28)
[2017-04-23] MEDS: ESCITALOPRAM OXALATE 10 MG TAB PO SCH (05:29)
[2017-04-23 07:40] VITALS: RESP 14; TEMP 98.5; O2SAT 92
--- NOTE | 2017-04-23 08:07 | NEUSURGPN ---
Assessment/Plan: POD#4 s/p L2-5 TLIF Plan: - Optimize pain management, improved on current regiment - medicine assistance appreciated for management of medical problems - LSO brace when OOB - post-op xrays show intact hardware with good alignment - WIll d/c PANKAJ drain today - PT/OT -Home with home health care - please call with any new neurologic changes Subjective: low back pain, tolerable with medications. Objective: NAD A&Ox3 MAEx4 5/5 and equal in BUE and BLE. Incision c/d/i. PANKAJ drain serosanguineous Catheter Insertion Date: 04/19/17 - Physician Patient Seen by : Angelique Neurosurgery Physical Exam - Vitals, I&O, Labs I and O 04/22/17 04/23/17 04/24/17 05:59 05:59 05:59 Intake Total 3133 1250 Output Total 3865 2105 Balance -732 -855 Intake: Oral (ml) 1700 1250 IV Intake (ml) 1090 IV Infused (ml) 343 Ns 1,000 ml @ 100 mls/hr 343 IV CONT JOANN Rx#: [id number] Output: Urine (ml) 3675 2075 Catheter 3675 650 Urinal 1425 PANKAJ Drain Output (ml) 190 30 Posterior Back Jose Martin 190 30 Tai Other: Intake Quantity Yes Sufficient Number of Voids Toilet 1 Urinal 1 Vital Signs Temp Pulse Resp BP Pulse Ox 36.9 C 77 14 148/70 H 92 04/23/17 07:39 04/23/17 07:39 04/23/17 07:39 04/23/17 07:39 04/23/17 07:39 Laboratory Results 04/22/17 04:49 04/21/17 04:59 ICD10 Worksheet Patient Problems: Problems Problem Status Onset Lumbar canal stenosis Acute
[2017-04-23] MEDS: morphINE SR 15 MG TAB PO SCH (08:33)
[2017-04-23] MEDS: SENNOSIDES/DOCUSATE SODIUM TAB PO SCH (08:33)
[2017-04-23] MEDS: CARVEDILOL 25 MG TAB PO SCH (08:33)
[2017-04-23] MEDS: ATORVASTATIN CALCIUM 20 MG TAB PO SCH (08:33)
[2017-04-23] MEDS: POLYETHYLENE GLYCOL 3350 17 GM PKT PO SCH ×2 (08:33→14:57)
[2017-04-23] MEDS: ALLOPURINOL 300 MG TAB PO SCH (08:33)
[2017-04-23] MEDS: METHOCARBAMOL 750 MG TAB PO SCH ×2 (08:33→14:57)
[2017-04-23] MEDS: ENOXAPARIN 40 MG/0.4 ML SYR SC SCH (08:34)
[2017-04-23 08:40] VITALS: BP 144/67; PULSE 79
--- NOTE | 2017-04-23 08:57 | PDIAF ---
- Diagnosis Code Status: Full Code - Medication Management Discharge Medications: Medications to Continue on Transfer Escitalopram Oxalate [Lexapro 10 MG] 20 mg PO DAILY06 11/09/11 [Last Taken 04/19] Allopurinol [Allopurinol 300 MG (RX)] 300 mg PO DAILY 04/20/17 [Last Taken 04/19] Atorvastatin Calcium [Lipitor 20 mg (*)] 20 mg PO DAILY 04/20/17 [Last Taken 08/31] Carvedilol [Coreg (*)] 25 mg PO BIDMEAL 04/20/17 [Last Taken 04/19/17] Furosemide [Lasix 20 MG (*)] 20 mg PO BIDDIUR 04/20/17 [Last Taken 04/19/17] Multivitamins [Multivitamin (*)] 1 each PO DAILY 04/20/17 [Last Taken Unknown] Pramipexole Di-HCl [Mirapex 0.25 mg (*)] 0.25 mg PO QID 04/20/17 [Last Taken 08/31] Methocarbamol [Robaxin 750 mg (*)] 750 mg PO TID 60 Days tab 04/23/17 [Last Taken Unknown] Sennosides/Docusate Sodium [Senokot-S] 1 - 2 tab PO BID tab 04/23/17 [Last Taken Unknown] morphINE SR [Ms Contin/Oramorph 15 mg (*)] 15 mg PO BID #60 tab 04/23/17 [Last Taken Unknown] oxyCODONE IR [Oxycodone Ir (*)] 5 - 15 mg PO Q4HRS PRN #90 tab 04/23/17 [Last Taken Unknown] Discharge Medications: Refer to the Discharge Home Medication list for PRN reason. - Orders Services needed: Physical Therapy, Occupational Therapy Diet Recommendation: no restrictions on diet - Follow Up Care Current Providers and Referrals: Christ Garland DO [Primary Care Provider] - Phoenix Merino MD [Medical Doctor] -
--- NOTE | 2017-04-23 09:25 | HOSPPROG ---
Hospitalist Progress Note Assessment/Plan: T12-L5 fusion - POD #4. Doing well. Post-op care per ortho. Hypertension - no more orthostatic symptoms -cont half dose coreg, can resume full dose at dc -cont to hold lasix, advised pt to resume at 20 mg daily rather than BID for now, f/u with PCP ABLA - post-op hgb drop as expected, monitor Thrombocytopenia - new, mild, still >100, monitor FARRAH - cont CPAP Pedal edema - nl LV function on echo, valves not well visualized Depression - cont SSRI Full code DVT PPLX - Lovenox Dispo - cont inpt Subjective: Pt feels better this am. Ambulating, pain controlled. Eating and drinking well. No fevers. No CP or SOB. Objective: Vital Signs Temp Pulse Resp BP Pulse Ox 36.9 C 79 14 144/67 H 92 04/23/17 07:39 04/23/17 08:33 04/23/17 07:39 04/23/17 08:33 04/23/17 07:39 Laboratory Results 04/22/17 04:49 04/21/17 04:59 04/22/17 04/23/17 04/24/17 05:59 05:59 05:59 Intake Total 3133 1250 Output Total 3865 2105 60 Balance -732 -855 -60 - Physical Exam Constitutional: no apparent distress Eyes: PERRL Ears, Nose, Mouth, Throat: moist mucous membranes Cardiovascular: regular rate and rhythym Respiratory: no respiratory distress, clear to auscultation, reduced air movement Gastrointestinal: normoactive bowel sounds, soft, non-tender abdomen Skin: warm Musculoskeletal: full muscle strength Neurologic: AAOx3 Psychiatric: interacting appropriately ICD10 Worksheet Patient Problems: Problems Problem Status Onset Lumbar canal stenosis Acute
--- NOTE | 2017-04-23 16:51 | ASMTCMCOM ---
CM Note CM Note Notes: This morning pt wanted to dc home but after working w PT he decides SNF is safest dc, pt #1 choice [facility] has no beds, pt accepted and agreeable to [facility] who have authLauren Chavez set up transport at 1630. Orders sent in Allscripts. RN to call report. Date Signed: 04/23/2017 04:51 PM Electronically Signed By:CRISSY Augustin
--- NOTE | 2017-04-23 16:51 | ASDISCHSUM ---
Discharge Information Plan Status:SNF Medically Cleared to Leave: Discharge Date:04/23/2017 04:45 PM D/C Disposition:Snf Facility ADT D/C Disposition:Home, Routine, Self-Care Projected Discharge Date:04/23/2017 11:00 AM Transportation at D/C:Wheelchair Van Discharge Delay Reason: Follow-Up Date:04/23/2017 11:00 AM Discharge Slot: Final Diagnosis: Placement Information Referral Type:*Residential/SNF Referral ID:[id number] Provider Name:Health system [place] Address 1:[address] Address 2: City:[place] Selection Factors: State:[place] Patient Contact Information Contact Name:JACK Relationship:Daughter Address:[address] City:[place] Alternate Phone: State/Zip Code:[place] [address] Email: Financial Information Financial Class:HMO and PPO Plans Primary Plan Desc: OUT OF STATE PPO Primary Plan Number:[id number] Secondary Plan Desc:MEDICARE INPATIENT Secondary Plan Number:[id number] Assessment Information [facility] CM Progress Note CM Note CM Note Notes: Reviewed chart for discharge plan, pt's progress. Pt s/p T12-L5 fusion, POD 1. Pt lives w/ his dghtr and son-in-law. PT/OT rec home health care. CM unable to meet w/ pt today to discuss options; will follow up on 04/21/17. Current Discharge Plan: Home w/ Home Health Care Date Signed: 04/20/2017 06:15 PM Electronically Signed By:Leann Morgan RN [facility] CM Progress Note CM Note CM Note Notes: Pt sleeping all afternoon when CM tried to discuss HC choice. C/M will f/u with pt for DC planning tomorrow. Date Signed: 04/21/2017 04:22 PM Electronically Signed By:Racquel Stacy LCSW [facility] CM Progress Note CM Note CM Note Notes: Therapies rec inpatient rehab, today pt agreeable to inpatient rehab reporting he is not confident going home now. Rehab consult order is in, [facility] Vidales is assessing. CM to follow. Date Signed: 04/22/2017 12:19 PM Electronically Signed By:CRISSY Augustin [facility] CM Progress Note CM Note CM Note Notes: Pt does not qualify for [facility] inpatient rehab, pt reports he will talk to family about SNF vs. home w [facility]. With pt insurance [facility] are SNF options, pt reports they are both "dumps." [facility] also now takes . CM to follow. Date Signed: 04/22/2017 03:56 PM Electronically Signed By:CRISSY Augustin [facility] CM Progress Note CM Note CM Note Notes: This morning pt wanted to dc home but after working w PT he decides SNF is safest dc, pt #1 [facility] has no beds, pt accepted and agreeable to [facility] who have auth. Kathy set up transport at 1630. Orders sent in Spool. RN to call report. Date Signed: 04/23/2017 04:51 PM Electronically Signed By:CRISSY Augustin Intervention Information Intervention Type:*IM-Signed Date of Service:04/23/2017 01:38 PM Patient Type:Inpatient Staff Member:Teresa Rosado Hours: Discipline: Severity: Comment:
--- NOTE | 2017-04-23 16:51 | ASMTCMCOM ---
CM Note CM Note Notes: This morning pt wanted to dc home but after working w PT he decides SNF is safest dc, pt #1 choice [facility] has no beds, pt accepted and agreeable to [facility] who have authLauren Chavez set up transport at 1630. Orders sent in [employer]. RN to call report. Date Signed: 04/23/2017 04:51 PM Electronically Signed By:CRISSY Augustin
--- NOTE | 2017-04-23 16:51 | ASMTCMCOM ---
CM Note CM Note Notes: This morning pt wanted to dc home but after working w PT he decides SNF is safest dc, pt #1 choice [facility] has no beds, pt accepted and agreeable to [facility] who have authLauren Chavez set up transport at 1630. Orders sent in [employer]. RN to call report. Date Signed: 04/23/2017 04:51 PM Electronically Signed By:CRISSY Augustin
--- NOTE | 2017-04-23 16:51 | ASDISCHSUM ---
Discharge Information Plan Status:SNF Medically Cleared to Leave: Discharge Date:04/23/2017 04:45 PM D/C Disposition:Longterm Facility ADT D/C Disposition:Home, Routine, Self-Care Projected Discharge Date:04/23/2017 11:00 AM Transportation at D/C:Wheelchair Van Discharge Delay Reason: Follow-Up Date:04/23/2017 11:00 AM Discharge Slot: Final Diagnosis: Placement Information Referral Type:*Senior Living/SNF Referral ID:[id number] Provider Name:[facility] [place]/[facility] Address 1:[address] Address 2: City:[place] Selection Factors: State:[place] Patient Contact Information Contact Name:JACK Relationship:Daughter Address:[address] City:[place] Alternate Phone: State/Zip Code:[place] [address] Email: Financial Information Financial Class:HMO and PPO Plans Primary Plan Desc: OUT OF STATE PPO Primary Plan Number:[id number] Secondary Plan Desc:MEDICARE INPATIENT Secondary Plan Number:[id number] Assessment Information [facility] CM Progress Note CM Note CM Note Notes: Reviewed chart for discharge plan, pt's progress. Pt s/p T12-L5 fusion, POD 1. Pt lives w/ his dghtr and son-in-law. PT/OT rec home health care. CM unable to meet w/ pt today to discuss options; will follow up on 04/21/17. Current Discharge Plan: Home w/ Home Health Care Date Signed: 04/20/2017 06:15 PM Electronically Signed By:Leann Morgan RN [facility] CM Progress Note CM Note CM Note Notes: Pt sleeping all afternoon when CM tried to discuss HC choice. C/M will f/u with pt for DC planning tomorrow. Date Signed: 04/21/2017 04:22 PM Electronically Signed By:Racquel Stacy LCSW [facility] CM Progress Note CM Note CM Note Notes: Therapies rec inpatient rehab, today pt agreeable to inpatient rehab reporting he is not confident going home now. Rehab consult order is in, [facility] Vidales is assessing. CM to follow. Date Signed: 04/22/2017 12:19 PM Electronically Signed By:CRISSY Augustin [facility] CM Progress Note CM Note CM Note Notes: Pt does not qualify for [facility] inpatient rehab, pt reports he will talk to family about SNF vs. home w [facility]. With pt insurance [facility] are SNF options, pt reports they are both "dumps." [facility] also now takes . CM to follow. Date Signed: 04/22/2017 03:56 PM Electronically Signed By:CRISSY Augustin [facility] CM Progress Note CM Note CM Note Notes: This morning pt wanted to dc home but after working w PT he decides SNF is safest dc, pt #1 [facility] has no beds, pt accepted and agreeable to [facility] who have auth. Kathy set up transport at 1630. Orders sent in [employer]. RN to call report. Date Signed: 04/23/2017 04:51 PM Electronically Signed By:CRISSY Augustin Intervention Information Intervention Type:*IM-Signed Date of Service:04/23/2017 01:38 PM Patient Type:Inpatient Staff Member:Teresa Rosado Hours: Discipline: Severity: Comment:
--- NOTE | 2017-04-23 16:51 | ASDISCHSUM ---
Discharge Information Plan Status:SNF Medically Cleared to Leave: Discharge Date:04/23/2017 04:45 PM D/C Disposition:[facility] Facility ADT D/C Disposition:Home, Routine, Self-Care Projected Discharge Date:04/23/2017 11:00 AM Transportation at D/C:Wheelchair Van Discharge Delay Reason: Follow-Up Date:04/23/2017 11:00 AM Discharge Slot: Final Diagnosis: Placement Information Referral Type:*Jail/SNF Referral ID:[id number] Provider Name:[facility] [place]/[facility] Address 1:[address] Address 2: City:[place] Selection Factors: State:[place] Patient Contact Information Contact Name:JACK Relationship:Daughter Address:[address] City:[place] Alternate Phone: State/Zip Code:[place] [address] Email: Financial Information Financial Class:HMO and PPO Plans Primary Plan Desc: OUT OF STATE PPO Primary Plan Number:[id number] Secondary Plan Desc:MEDICARE INPATIENT Secondary Plan Number:[id number] Assessment Information [facility] CM Progress Note CM Note CM Note Notes: Reviewed chart for discharge plan, pt's progress. Pt s/p T12-L5 fusion, POD 1. Pt lives w/ his dghtr and son-in-law. PT/OT rec home health care. CM unable to meet w/ pt today to discuss options; will follow up on 04/21/17. Current Discharge Plan: Home w/ Home Health Care Date Signed: 04/20/2017 06:15 PM Electronically Signed By:Leann Morgan RN [facility] CM Progress Note CM Note CM Note Notes: Pt sleeping all afternoon when CM tried to discuss HC choice. C/M will f/u with pt for DC planning tomorrow. Date Signed: 04/21/2017 04:22 PM Electronically Signed By:Racquel Stacy LCSW [facility] CM Progress Note CM Note CM Note Notes: Therapies rec inpatient rehab, today pt agreeable to inpatient rehab reporting he is not confident going home now. Rehab consult order is in, [facility] Vidales is assessing. CM to follow. Date Signed: 04/22/2017 12:19 PM Electronically Signed By:CRISSY Augustin [facility] CM Progress Note CM Note CM Note Notes: Pt does not qualify for [facility] inpatient rehab, pt reports he will talk to family about SNF vs. home w [facility]. With pt insurance [facility] and [facility] are SNF options, pt reports they are both "dumps." [facility] also now takes . CM to follow. Date Signed: 04/22/2017 03:56 PM Electronically Signed By:CRISSY Augustin [facility] CM Progress Note CM Note CM Note Notes: This morning pt wanted to dc home but after working w PT he decides SNF is safest dc, pt #1 [facility] has no beds, pt accepted and agreeable to [facility] who have auth. Kathy set up transport at 1630. Orders sent in [employer]. RN to call report. Date Signed: 04/23/2017 04:51 PM Electronically Signed By:CRISSY Augustin Intervention Information Intervention Type:*IM-Signed Date of Service:04/23/2017 01:38 PM Patient Type:Inpatient Staff Member:Teresa Rosado Hours: Discipline: Severity: Comment:
== END 2017-04-23 16:45 | disposition home or self-care (01) | DRG 460 ==
LOC: F3N 07:30
PROVIDERS: ADMIT Neurological Surgery; ATTEND Neurological Surgery
PROC: 0SG10AJ Fusion of 2 or more Lumbar Vertebral Joints with Interbody Fusion Device, Posterior Approach, Anterior Column, Open Approach (ICD-10-PCS; principal; 2017-04-19 09:30)
PROC: 00NY0ZZ Release Lumbar Spinal Cord, Open Approach (ICD-10-PCS; principal; 2017-04-19 09:30)
PROC: 8E0WXBZ Computer Assisted Procedure of Trunk Region (ICD-10-PCS; principal; 2017-04-19 09:30)
PROC: 4A1004G Monitoring of Central Nervous Electrical Activity, Intraoperative, Open Approach (ICD-10-PCS; principal; 2017-04-19 09:30)
PROC: 0ST20ZZ Resection of Lumbar Vertebral Disc, Open Approach (ICD-10-PCS; principal; 2017-04-19 09:30)
DX: M47.817 Spondylosis without myelopathy or radiculopathy, lumbosacral region (principal); M47.26 Other spondylosis with radiculopathy, lumbar region; M51.36 Other intervertebral disc degeneration, lumbar region; E66.09 Other obesity due to excess calories; I10 Essential (primary) hypertension; M10.9 Gout, unspecified; F32.9 Major depressive disorder, single episode, unspecified; G47.33 Obstructive sleep apnea (adult) (pediatric)
CPT/HCPCS: 97116-GP; 97162-GP; 97166-GO; 97530-GP; 97535-GO; C1713; G8978-GP-CJ; G8979-GP-CI; G8987-GO-CL; G8988-GO-CI; J0171; J0690; J1170; J1650; J2250; J2370; J2405; J2704; J3010; J7060

== ENCOUNTER 2017-04-26 11:44 | Inpatient (IN) | payer BC, OTHER ==
[2017-04-26] MEDS ORDERED: ONDANSETRON DISINTEGRATING 4 MG TAB PO PRN (12:08)
[2017-04-26] MEDS ORDERED: ONDANSETRON 4 MG/2 ML VIAL IVP PRN (12:08)
[2017-04-26] MEDS ORDERED: METHOCARBAMOL 750 MG TAB PO PRN (12:08)
[2017-04-26] MEDS ORDERED: PROMETHAZINE HCL 25 MG/ML INJ IVP PRN (12:08)
[2017-04-26] MEDS ORDERED: BISACODYL 10 MG SUPP PR PRN (12:08)
[2017-04-26] MEDS ORDERED: LACTULOSE 20 GM/30 ML UDCUP PO PRN (12:08)
[2017-04-26] MEDS ORDERED: HYDROmorphONE/DILAUDID 1 MG/ML INJ IVP PRN (12:08)
[2017-04-26] MEDS ORDERED: MAGNESIUM HYDROXIDE 30 ML UDCUP PO PRN (12:08)
[2017-04-26] MEDS ORDERED: NS W/ 20 KCl/L 1,000 ML IV SCH (12:15)
[2017-04-26] MEDS ORDERED: HYDROmorphone HCL/NS/PF 0.4 MG/2 ML SYR IVP PRN (12:29)
[2017-04-26 13:57] LABS: % IMMATURE GRANULYOCYTES 2.5 % (0.0-1.1); ABSOLUTE IMMATURE GRANULOCYTES 0.27 10^3/uL (0.00-0.10); ABSOLUTE NRBC COUNT 0.02 10^3/uL (0-0.01); ADD DIFF? NO; ADD MORPH? NO; ADD SCAN? NO; ATYPICAL LYMPHOCYTE FLAG 10 (0-99); FRAGMENT RBC FLAG 0 (0-99); HEMATOCRIT 29.9 % (40.0-51.0); HEMOGLOBIN 10.7 g/dL (13.7-17.5); LEFT SHIFT FLG 20 (0-99); LIPEMIA HEMOLYSIS FLAG 90 (0-99); MEAN CELL HEMOGLOBIN 32.7 pg (27.9-34.1); MEAN CELL HEMOGLOBIN CONCENTR. 35.8 g/dL (32.4-36.7); MEAN CELL VOLUME 91.4 fL (81.5-99.8); MEAN PLATELET VOLUME 9.9 fL (8.7-11.7); NRBC-AUTO% 0.2 % (0.0-0.2); PLATELET CLUMPS FLAG 30 (0-99); PLATELET COUNT 182 10^3/uL (150-400); RED BLOOD CELL COUNT 3.27 10^6/uL (4.40-6.38); RED CELL DISTRIBUTION WIDTH 13.8 % (11.5-15.2)
[2017-04-26 14:08] LABS: ANION GAP 8 mEq/L (8-16); CALCIUM 8.2 mg/dL (8.5-10.4); CARBON DIOXIDE 26 mEq/l (22-31); CHLORIDE 98 mEq/L (97-110); GLOMERULAR FILTRATION RATE > 60; GLUCOSE 94 mg/dL (70-100); POTASSIUM 3.9 mEq/L (3.5-5.2); SODIUM 132 mEq/L (134-144)
[2017-04-26] MEDS ORDERED: DIPHENHYDRAMINE CREAM TP PRN (14:15)
[2017-04-26] MEDS ORDERED: CALCIUM CARBONATE 500 MG CHEWABLE TAB PO PRN (14:15)
[2017-04-26] MEDS ORDERED: NON-FORMULARY NEW DRUG (Loratadine [Claritin 10 Mg] 10 MG) PO PRN (14:15)
[2017-04-26] MEDS: diphenhydrAMINE 25 MG CAP PO PRN (14:27)
[2017-04-26] MEDS: HYDROmorphONE/DILAUDID 4 MG TAB PO PRN (14:27)
[2017-04-26] MEDS: ACETAMINOPHEN 500 MG TAB PO SCH ×2 (14:28→20:56)
[2017-04-26] MEDS ORDERED: CETIRIZINE 10 MG TAB PO PRN (14:46)
--- NOTE | 2017-04-26 15:32 | GHP ---
[f rep st] HISTORY AND PHYSICAL DATE OF ADMISSION: 04/26/2017 CHIEF COMPLAINT: 1. Postoperative intractable pain. 2. Hives and rash. 3. Hypotension. HISTORY OF PRESENT ILLNESS: The patient is a pleasant 67-year-old gentleman who underwent a re-do L2-3, L3-4 and L4-5 laminectomy as well as transforaminal lumbar interbody fusions followed by T12-L5 posterolateral pedicle screw fixation surgical procedure on 04/19/[address] Merino. Postoperatively , the patient did well and was ultimately discharged to rehab facility on 2016. Today, the patient followed up in our clinic 1-week postoperatively at the request of Dr. Merino due to patient complains of inadequate pain control. The patient was seen in the clinic and complained of poor p.o. intake , poorly controlled pain and hives and a rash over the majority of his body. The patient denied any fevers or sweats, but stated that he had chills since the day of surgery. Currently, the patient is not reporting any new weakness or paresthesias. He has preexisting right quadriceps weakness. He has not had a bowel movement since prior to surgery over 7-days ago. PAST MEDICAL HISTORY: Hypertension, obstructive sleep apnea, bilateral lower extremity edema requiring Lasix daily, depression. PAST SURGICAL HISTORY: Total knee replacement on the left, prior L2-L5 laminectomy with Dr. Hutchinson, cataract surgery, and T12-L5 fusion with L2-3, L3-4 and L4-5 transforaminal lumbar interbody fusions on 04/19/[address] Merino. FAMILY HISTORY: Noncontributory. SOCIAL HISTORY: The patient does not drink or smoke. ALLERGIES: Codeine, sulfa. REVIEW OF SYSTEMS: Negative other than as mentioned in the HPI. PHYSICAL EXAM: GENERAL: A 67-year-old, morbidly obese male, in moderate distress. His bilateral lower extremities are edematous with hives/rash and some open sores. Lumbar incision is clean, dry, and intact with no drainage. However, there is diffuse blanching, erythematous rash across the thoracolumbar spine. He has hives on the neck, limbs and chest and some skin excoriation of the right greater than left abdomen secondary to intraoperative positioning and tape placement for intraoperative monitoring during surgery. NEUROLOGIC EXAM: Patient is awake, alert, and oriented x4. Cranial nerves 2 through 12 are intact to gross examination. Speech is fluent. Tongue is midline. He has equal and symmetric strength of the bilateral upper extremities. He has chronic right quadriceps weakness, but is 4/5 in bilateral iliopsoas, 4+/5 in the left quad, and 4/5 in the right quad, with 5/5 strength in dorsiflexors. Sensation is grossly intact to light touch in the bilateral upper and lower extremities. Reflexes deferred. IMPRESSION: This is a 67-year-old male who is 7-days status post T12-L5 fusion with L2-3, L3-4, L4-5 transforaminal lumbar interbody fusions, who was doing poorly at his rehab facility. Currently, the patient's pain is poorly controlled and he has a diffuse rash with some evidence of what appears to be hives in the neck as well as lower extremities, trunk and limbs and around his incision. PLAN: All above issues were discussed with the patient in detail as well as Dr. Merino. At this time, the patient will be directly admitted from our clinic to the hospital. I have contacted the Hospitalist Service who have agreed to see and assist in medical management of this patient. /[id number]/MODL MTDD
[2017-04-26] MEDS ORDERED: methylPREDNISolone SOD SUCC 125 MG/2 ML VIAL IVP ONE (17:00)
[2017-04-26] MEDS: PRAMIPEXOLE 0.25 MG TAB PO SCH ×3 (17:04→20:59)
[2017-04-26] MEDS: CARVEDILOL 25 MG TAB PO SCH (17:06)
[2017-04-26] MEDS: POLYETHYLENE GLYCOL 3350 17 GM PKT PO SCH ×2 (17:07→20:58)
--- NOTE | 2017-04-26 19:08 | GCON ---
[f rep st] CONSULTATION INTERNAL MEDICINE CONSULTATION DATE OF CONSULTATION: 04/26/2017 REQUESTED BY: Phoenix Merino MD. REASON FOR CONSULTATION: Medical opinion regarding diffuse rash. HISTORY: The patient is a 67-year-old male who underwent a T12-L5 fusion April 19, 2017. A few da ys later, he went to [facility]. He does have a history of small patches of an itchy rash for many y ears, on which he typically would put a little 1% hydrocortisone, and it would immediately go way. Hai martinez now has a diffuse massively itching rash all over his whole body. He says he first noticed the itc cj and the rash on postoperative day #1. He went to [facility], and this rash has continued to pro lance and worsen. In the last 24-36 hours, it has been completely uncontrollable, and he has been re admitted to the hospital. The itching and the rash are worse on his back around his incision. He al so complains of poor pain control at [facility], mostly due to nursing unavailability regarding his p .r.n. medications. He was started on Benadryl and Claritin at [facility] without relief. He is now absolutely miserable, just itching everywhere. He also had a reaction to the tape on his anterior ab domen with a skin rash there, as well. PAST MEDICAL HISTORY: 1. Hypertension. 2. Obstructive sleep apnea, on CPAP. 3. Depression. 4. Obesity. 5. Gout. PAST SURGICAL HISTORY: 1. Total knee arthroplasty. 2. Lumbar fusion. MEDICATIONS: Please see computer record for full detailed list. ALLERGIES: Codeine and sulfa. SOCIAL HISTORY: No smoking. No alcohol. Recently at [facility]. REVIEW OF SYSTEMS: Complete review of systems obtained. Review of systems negative regarding consti tutional, HEENT, GI, pulmonary, cardiovascular, , hematology, muscular, endocrine, and psych except for positives as in HPI. FAMILY HISTORY: Reviewed. Noncontributory to presenting complaint. PHYSICAL EXAMINATION: GENERAL: Well-developed, well-nourished male, in no distress. VITAL SIGNS: Temperature is 36.9, pulse 76, blood pressure 169/78, satting 89% on room air. EYES: Normal conjunc tivae. Pupils react to light. ENT: Normal ears and nose. Hearing intact. Normal lips and teeth. Oropharynx moist. NECK: Trachea midline. No thyromegaly. CHEST: Normal effort. LUNGS: Clear t o auscultation bilaterally. CARDIOVASCULAR: Regular rhythm. No murmur. No extremity edema. ABDOM EN: Soft, nontender. No hepatosplenomegaly. SKIN: He has a symmetrical bilateral rash. It is defi nitely most prominent around his back incision where it is completely confluent. As we go onto the a nterior abdomen and chest, he has evidence of the rash as well; however it is much more sparse. Some evidence of it on the face and the extremities. It is raised, warm, and inflamed. MUSCULOSKELETAL: No cyanosis or clubbing. Strength 5/5 upper and lower extremities. NEUROLOGIC: Cranial nerves in tact. Normal sensation to light touch. PSYCH: Alert and oriented x3. Normal affect. Normal judgm ent. Normal memory. LABORATORY DATA: White count 10.68, hematocrit 27.9, platelets 282. Sodium 132, potassium 3.9, chlo ride 98, bicarb 26, BUN 18, creatinine 1.0, glucose 94. Echocardiogram done last admission shows an ejection fraction of 61%; otherwise negative. MEDICAL RECORDS REVIEW: I reviewed chart very closely regarding his recent hospitalization and all m edications he was given at that time. This case was discussed with IVORY Nelson, for Dr. Shannan thomas regarding treatment plan and steroid usage. ASSESSMENT/PLAN: 1. Rash: This is clearly consistent with an allergic reaction. Based on the distribution and the f ocal predominance around his surgical incision, I am suspicious for a reaction to something that was implanted at the time of surgery, such as hardware, absorbable sutures, or adhesive. Could also cons ider a drug reaction, and I have reviewed and will minimize all new medications. I have spoken with IVORY Nelson, who has contacted Dr. Merino regarding options for steroid treatment given his recent postoperative state. After discussion, we did decide to give a 1 time IV steroid dose to try to break the inflammation. We will then proceed with a topical cream and see how he does. Will sta rt triamcinolone 0.1% predominantly to affected areas. We will continue his Claritin with Benadryl a s needed and change his Pepcid to IV. 2. Spinal fusion: Pain control has been an issue. He does have a longstanding history of taking mo rphine and oxycodone without any troubles. He also tolerates Dilaudid well. To simplify things, we are going with Dilaudid for now due to these concerns for allergy to drugs. 3. Obesity: Body mass index 39 with obstructive sleep apnea. Will continue CPAP at night. 4. Hypertension, hyperlipidemia, and gout. I have reviewed all his medications; allopurinol, atorva statin, Lasix, Coreg, Lexapro, and Mirapex were all medications that he was taking prior to surgery a nd therefore unlikely to be causing this reaction. Thank you very much for this consultation. Internal Medicine will continue to follow throughout his hospitalization. /[id number]/MODL
[2017-04-26] MEDS: FAMOTIDINE 20 MG/NACL 50 ML IV SCH (20:57)
[2017-04-26] MEDS: SENNOSIDES/DOCUSATE SODIUM TAB PO SCH (20:59)
[2017-04-26] MEDS ORDERED: morphINE SR 15 MG TAB PO SCH (21:00)
[2017-04-26] MEDS ORDERED: FAMOTIDINE 20 MG TAB PO SCH (21:00)
[2017-04-26] MEDS ORDERED: TRIAMCINOLONE 0.1% 15 GM CRTUBE TP SCH (22:00)
[2017-04-27] MEDS: HYDROmorphONE/DILAUDID 4 MG TAB PO PRN (02:07)
[2017-04-27] MEDS: diphenhydrAMINE 25 MG CAP PO PRN (03:22)
[2017-04-27 05:09] LABS: ABSOLUTE NRBC COUNT 0.02 10^3/uL (0-0.01); ADD DIFF? YES; ADD MORPH? NO; ADD SCAN? NO; ATYPICAL LYMPHOCYTE FLAG 10 (0-99); FRAGMENT RBC FLAG 0 (0-99); HEMOGLOBIN 11.1 g/dL (13.7-17.5); LEFT SHIFT FLG 40 (0-99); LIPEMIA HEMOLYSIS FLAG 90 (0-99); MEAN CELL HEMOGLOBIN 31.5 pg (27.9-34.1); MEAN CELL HEMOGLOBIN CONCENTR. 34.7 g/dL (32.4-36.7); MEAN CELL VOLUME 90.9 fL (81.5-99.8); MEAN PLATELET VOLUME 9.9 fL (8.7-11.7); NRBC-AUTO% 0.2 % (0.0-0.2); PLATELET CLUMPS FLAG 10 (0-99); PLATELET COUNT 215 10^3/uL (150-400); RED BLOOD CELL COUNT 3.52 10^6/uL (4.40-6.38); RED CELL DISTRIBUTION WIDTH 13.7 % (11.5-15.2)
[2017-04-27 05:14] LABS: ANION GAP 13 mEq/L (8-16); CALCIUM 8.5 mg/dL (8.5-10.4); CARBON DIOXIDE 25 mEq/l (22-31); CHLORIDE 100 mEq/L (97-110); GLOMERULAR FILTRATION RATE > 60; GLUCOSE 159 mg/dL (70-100); POTASSIUM 4.5 mEq/L (3.5-5.2); SODIUM 138 mEq/L (134-144)
[2017-04-27 05:48] LABS: PLATELET ESTIMATE ADEQUATE (ADEQ); POLYCHROMASIA 1+
[2017-04-27] MEDS: ACETAMINOPHEN 500 MG TAB PO SCH ×2 (06:04→06:05)
--- NOTE | 2017-04-27 08:05 | NEUSURGPN ---
Assessment/Plan: 67y/o male 1 week s/p T12-L5 PSF with whole body rash -Appreciate medical management/work up of rash. Patient states very itchy and fells worse today then yesterday -Continue to optimize pain management -Favor anti-histamine treatment over steroids given patient recent fusion. -Discussed with Dr. Mayfield -Please notify NS with any change in neuro/motor exam Subjective: Itchy over his entire body. Denies any new leg pain pain, numbness, tingling or weakness Objective: NAD A&Ox3 MAEx4 5/5 and equal in BUE and BLE. Rash over trunk, arms and legs. Incision c/d/i - Physician Discussed Patient with DrLauren: [facility] Physical Exam - Vitals, I&O, Labs I and O 04/26/17 04/27/17 04/28/17 05:59 05:59 05:59 Output Total 1 Balance -1 Weight 133.81 kg Output: Urine/Stool Mix (ml) 1 Toilet 1 Other: Intake Quantity Yes Sufficient Number of Voids Toilet 2 Number of Stools Toilet 1 Vital Signs Temp Pulse Resp BP Pulse Ox 36.5 C 86 16 141/72 H 91 L 04/27/17 07:23 04/27/17 07:23 04/27/17 07:23 04/27/17 07:23 04/27/17 07:23 Laboratory Results 04/27/17 04:23 04/27/17 04:23 ICD10 Worksheet Patient Problems: Problems Problem Status Onset Lumbar canal stenosis Acute
[2017-04-27] MEDS ORDERED: MULTIVITAMINS 1 EACH TAB PO SCH (09:00)
[2017-04-27] MEDS ORDERED: ENOXAPARIN 40 MG/0.4 ML SYR SC SCH (09:00)
[2017-04-27] MEDS ORDERED: ESCITALOPRAM OXALATE 10 MG TAB PO SCH (09:00)
[2017-04-27] MEDS ORDERED: FUROSEMIDE 20 MG TAB PO SCH (09:00)
[2017-04-27] MEDS ORDERED: TRIAMCINOLONE TP SCH (09:00)
[2017-04-27] MEDS ORDERED: ATORVASTATIN CALCIUM 20 MG TAB PO SCH (09:00)
[2017-04-27] MEDS ORDERED: NON-FORMULARY NEW DRUG (Escitalopram Oxalate [Lexapro] 20 MG) PO SCH (09:00)
[2017-04-27] MEDS ORDERED: CETIRIZINE 10 MG TAB PO SCH (09:00)
[2017-04-27] MEDS ORDERED: ALLOPURINOL 300 MG TAB PO SCH (09:00)
[2017-04-27] MEDS: SENNOSIDES/DOCUSATE SODIUM TAB PO SCH (10:00)
[2017-04-27] MEDS: CARVEDILOL 25 MG TAB PO SCH (10:08)
[2017-04-27] MEDS: PRAMIPEXOLE 0.25 MG TAB PO SCH (10:10)
[2017-04-27] MEDS: FAMOTIDINE 20 MG/NACL 50 ML IV SCH (10:11)
[2017-04-27] MEDS: POLYETHYLENE GLYCOL 3350 17 GM PKT PO SCH (10:22)
--- NOTE | 2017-04-27 10:48 | HOSPPROG ---
Hospitalist Progress Note Assessment/Plan: * Allergic rash -unclear what he is reacting to - no new obvious offending meds -suspect related to surgical procedure - ? absorbable sutures vs. adhesive -much better post IV steroid x 1 -avoid further systemic steroids given need for surgical healing -Zyrtec 10mg daily -topical steroid to be used sparingly - triamcinolone 0.1% - medium potency steroid -continue Benadryl cream prn * Lumbar fusion - pain well controlled -cleared by PT/OT for home rather than return to [facility] * FARRAH/CPAP * Morbid obesity BMI 39 * Gout - consider hold allopurinol as high risk drug regarding allergy Patient was admitted to inpatient status, but improved much more rapidly than expected Subjective: Much better. Less itching. Cleared by PT and anxious for discharge home. Objective: Vital Signs Temp Pulse Resp BP Pulse Ox 36.5 C 92 16 167/79 H 91 L 04/27/17 07:23 04/27/17 10:08 04/27/17 07:23 04/27/17 10:08 04/27/17 07:23 Laboratory Results 04/27/17 04:23 04/27/17 04:23 04/26/17 04/27/17 04/28/17 05:59 05:59 05:59 Output Total 1 Balance -1 d/w Fay Ruelas - okay to discharge today from medical perspective - Physical Exam Constitutional: no apparent distress, appears nourished, not in pain Cardiovascular: regular rate and rhythym, no murmur, rub, or gallop Respiratory: no respiratory distress, no rales or rhonchi, clear to auscultation Gastrointestinal: normoactive bowel sounds, soft, non-tender abdomen, no palpable masses Skin: warm, no fluctuance, rash (much better, less beefy red, especially surrounding incision), No abrasion, No induration Neurologic: AAOx3, sensation intact bilaterally Psychiatric: interacting appropriately, not anxious, not encephalopathic, thought process linear ICD10 Worksheet Patient Problems: Problems Problem Status Onset Lumbar canal stenosis Acute
[2017-04-27 11:49] VITALS: BP 124/69; PULSE 75; RESP 14; TEMP 97.8; O2SAT 94
--- NOTE | 2017-04-27 14:42 | ASDISCHSUM ---
Discharge Information Plan Status:Home with No Needs Medically Cleared to Leave:04/26/2017 Discharge Date:04/27/2017 12:33 PM D/C Disposition: ADT D/C Disposition:Home, Routine, Self-Care Projected Discharge Date:04/27/2017 12:00 AM Transportation at D/C: Discharge Delay Reason: Follow-Up Date:04/27/2017 12:00 AM Discharge Slot: Final Diagnosis: Placement Information Patient Contact Information Contact Name:JACK Relationship:Daughter Address:[address] City:[place] Alternate Phone: [facility]/Zip Code:[place] [address] Email: Financial Information Financial Class:HMO and PPO Plans Primary Plan Desc: OUT OF STATE PPO Primary Plan Number:[id number] Secondary Plan Desc:MEDICARE INPATIENT Secondary Plan Number:[id number] Assessment Information Intervention Information
== END 2017-04-27 12:33 | disposition home or self-care (01) | DRG 948 ==
LOC: F3N 12:22
PROVIDERS: ADMIT Neurological Surgery; ATTEND Neurological Surgery
DX: G89.18 Other acute postprocedural pain (principal); T81.89XA Other complications of procedures, not elsewhere classified, initial encounter; L50.9 Urticaria, unspecified; T78.40XA Allergy, unspecified, initial encounter; R21 Rash and other nonspecific skin eruption; Z98.1 Arthrodesis status; E66.01 Morbid (severe) obesity due to excess calories; Z68.39 Body mass index [BMI] 39.0-39.9, adult; I10 Essential (primary) hypertension; E78.5 Hyperlipidemia, unspecified; M10.9 Gout, unspecified; G47.33 Obstructive sleep apnea (adult) (pediatric)
CPT/HCPCS: 97161-GP; 97165-GO; G8978-GP-CH; G8979-GP-CH; G8980-GP-CH; G8987-GO-CI; G8988-GO-CI; G8989-GO-CI; J1650; J2930

== ENCOUNTER 2017-07-29 05:37 | Observation (INO) | payer OTHER, MEDICARE ==
[2017-07-29] MEDS ORDERED: ceFAZolin 2 GM/SWFI 2 GM/20 ML SYR IVP ONE (05:49)
[2017-07-29] MEDS ORDERED: LIDOCAINE 1% 2 ML INJ ID PRN (05:50)
[2017-07-29] MEDS ORDERED: LR 1,000 ML IV ONE (05:50)
[2017-07-29] MEDS ORDERED: BUPIVACAINE 0.25% 30 ML SDV ONE (06:39)
[2017-07-29] MEDS ORDERED: BACITRACIN 50,000 UNITS/10 ML SYR IRR ONE (06:39)
[2017-07-29] MEDS ORDERED: THROMBIN (BOVINE) 5,000 UNIT VIAL TP ONE (06:41)
--- NOTE | 2017-07-29 06:42 | PDANEPAE ---
ANE History of Present Illness cervical radiculopathy p/f C6-7 ACDF ANE Past Medical History - Cardiovascular History Hx Hypertension: Yes Hx Arrhythmias: No Hx Chest Pain: No Hx Coronary Artery / Peripheral Vascular Disease: No Hx CHF / Valvular Disease: No Hx Palpitations: No Cardiovascular History Comment: TY LOWER EXT SWELLING - Pulmonary History Hx COPD: No Hx Asthma/Reactive Airway Disease: No Hx Recent Upper Respiratory Infection: No Hx Oxygen in Use at Home: No Hx Sleep Apnea: Yes Sleep Apnea Screening Result - Last Documented: Positive Pulmonary History Comment: FARRAH USES B-PAP INSTRUCTED TO BRING DOS - Neurologic History Hx Cerebrovascular Accident: No Hx Seizures: No Hx Dementia: No Neurologic History Comment: Benign positional vertigo. Restless Leg Syndrome - Endocrine History Hx Diabetes: No Obesity: yes, severe - Renal History Hx Renal Disorders: No - Liver History Hx Hepatic Disorders: No - Neurological & Psychiatric Hx Hx Neurological and Psychiatric Disorders: No - Cancer History Hx Cancer: Yes Cancer History Comment: SKIN- LT ANKLE MOH'S PROCEDURE - Congenital Disorder History Hx Congenital Disorders: No - GI History GERD: mild Hx Gastrointestinal Disorders: No - Other Health History Other Health History: RESTLESS LEG. GOUT - Chronic Pain History Chronic Pain: Yes (BACK STILL RECOVERING FROM LUMBAR SURGERY) - Surgical History Prior Surgeries: T 12 LIFT & LUMBAR FUSION 04/19/17. RT CATARACT. LT ANKLE MOH' S PROCEDURE. 2 LUMBAR LAMINECTOMY. COLONOSCOPY. LEFT TOTAL KNEE 2004 ANE Review of Systems Review of systems is: negative Review of Systems: - Exercise capacity METS (RN): 4 METS ANE Patient History - Allergies Allergies/Adverse Reactions: codeine Allergy (Verified 04/18/17 12:06) NAUSEA Sulfa (Sulfonamide Antibiotics) Allergy (Verified 04/18/17 12:06) Rash - Home Medications Home medications: home medication list seen and reviewed Home Medications: Allopurinol [Allopurinol 300 MG (RX)] 300 mg PO DAILY 04/20/17 [Last Taken 04/26] Atorvastatin Calcium [Lipitor 20 mg (*)] 20 mg PO DAILY 04/20/17 [Last Taken 04/02] Carvedilol [Coreg (*)] 25 mg PO BIDMEAL 04/20/17 [Last Taken 04/26/17] Multivitamins [Multivitamin (*)] 1 each PO DAILY 04/20/17 [Last Taken 04/26/17] Pramipexole Di-HCl [Mirapex 0.25 mg (*)] 0.25 mg PO QID 04/20/17 [Last Taken 04/02] Escitalopram Oxalate [Lexapro] 20 mg PO DAILY 04/26/17 [Last Taken 04/26/17] Eszopiclone [Lunesta] 3 mg PO HS 04/26/17 [Last Taken 04/25/17] Glucosamine 07/25/17 [Last Taken Unknown] - NPO status NPO Since - Liquids (Date): 07/28/17 NPO Since - Liquids (Time): 20:00 NPO Since - Solids (Date): 07/28/17 NPO Since - Solids (Time): 20:00 - Anes Hx Anes Hx: no prior problems - Smoking Hx Smoking Status: Never smoked - Family Anes Hx Family Hx Anesthesia Complications: NEG ANE Labs/Vital Signs - Vital Signs Blood Pressure: 98/60 Heart Rate: 69 Respiratory Rate: 16 O2 Sat (%): 94 Height: 185.42 cm Weight: 127.006 kg ANE Physical Exam - Airway Neck exam: FROM Mallampati Score: Class 1 Mouth exam: normal dental/mouth exam, guardado - Pulmonary Pulmonary: no respiratory distress - Cardiovascular Cardiovascular: regular rate and rhythym - ASA Status ASA Status: III ANE Anesthesia Plan Anesthesia Plan: general endotracheal anesthesia Specialized Airway: video laryngoscope
[2017-07-29] MEDS ORDERED: MIDAZOLAM 2 MG/2 ML VIAL IVP ONE (06:43)
[2017-07-29] MEDS ORDERED: fentaNYL 100 MCG/2 ML INJ ONE ×2 (06:53→10:14)
[2017-07-29] MEDS ORDERED: REMIFENTANIL HCL 1 MG VIAL ONE (06:53)
[2017-07-29] MEDS ORDERED: PROPOFOL/EMULSION 500 MG/50 ML BOTTLE IV ONE (06:54)
[2017-07-29] MEDS ORDERED: PROPOFOL 200 MG/20 ML VIAL ONE ×2 (06:54→08:37)
[2017-07-29] MEDS ORDERED: LIDOCAINE 2% 5 ML SDV ONE (07:04)
[2017-07-29] MEDS ORDERED: ROCURONIUM 50 MG/5 ML VIAL ONE (07:04)
--- NOTE | 2017-07-29 07:15 | PDHPUP ---
History & Physical Update H&P update statement: This history and physical update is based on an assessment of the patient which was completed after admission or registration (within 24 hours), but prior to the surgery/procedure. H&P update: H&P reviewed & patient examined, no change in patient's condition since H&P completed
[2017-07-29] MEDS ORDERED: BUPIVACAINE 0.5% 30 ML SDV ONE (07:38)
[2017-07-29] MEDS ORDERED: HYDROmorphONE/DILAUDID 2 MG/ML INJ ONE (08:05)
[2017-07-29] MEDS ORDERED: DEXAMETHASONE 4 MG/ML VIAL ONE (08:06)
[2017-07-29] MEDS ORDERED: ONDANSETRON 4 MG/2 ML VIAL ONE (08:06)
[2017-07-29] MEDS ORDERED: HYDROmorphONE/DILAUDID 1 MG/ML INJ IVP PRN (08:35)
[2017-07-29] MEDS ORDERED: NALOXONE HCL 0.4 MG/ML INJ IVP PRN ×2 (08:35)
[2017-07-29] MEDS ORDERED: ALBUTEROL 3 ML DEYVIAL IH PRN (08:35)
[2017-07-29] MEDS ORDERED: ACETAMINOPHEN 500 MG TAB PO PRN (08:35)
[2017-07-29] MEDS ORDERED: HYDROCODONE/APAP 5/325 TAB PO PRN (08:35)
[2017-07-29] MEDS ORDERED: OXYCODONE/APAP 5/325 TAB PO PRN (08:35)
[2017-07-29] MEDS ORDERED: ONDANSETRON 4 MG/2 ML VIAL IVP PRN ×2 (08:40→10:04)
[2017-07-29] MEDS ORDERED: LABETALOL HCL 5 MG/ML 20 ML MDV IVP PRN (08:40)
[2017-07-29] MEDS ORDERED: LR 500 ML IV PRN (08:40)
[2017-07-29] MEDS ORDERED: PROMETHAZINE HCL 25 MG/ML INJ IVP PRN (08:40)
[2017-07-29] MEDS ORDERED: METOCLOPRAMIDE 10 MG/2 ML VIAL IVP PRN (08:40)
--- NOTE | 2017-07-29 09:07 | POSTANESTH ---
Post Anesthetic Evaluation Cardiovascular Status: Normal, Stable Respiratory Status: Normal, Stable Level of Consciousness/Mental Status: Can Participate in Eval Pain Control: Adequate, Prn Tx Ordered Nausea/Vomiting Control: Adequate, Prn Tx Ordered Complications Possibly Related to Anesthesia: None Noted
--- NOTE | 2017-07-29 09:41 | SOAPPROG ---
VEN[facility]ATES[facility] Progress Note Assessment/Plan: Assessment: 67 yo M sp C6/7 ACDF Plan: stable hard collar for 4 weeks, Riya to fit will check thoracic MRI to evaluate for stenosis please call with neuro changes 07/29/17 09:39 Subjective: + neck pain, no arm pain Objective: Vital Signs Temp Pulse Resp BP Pulse Ox 36.5 C 69 16 98/60 L 94 07/29/17 06:56 07/29/17 06:56 07/29/17 06:56 07/29/17 06:56 07/29/17 06:56 somnolent PERRL, EOMI DALY x 4 + light touch C/D/I ICD10 Worksheet Patient Problems: Problems Problem Status Onset Fusion of spine of cervical region Acute Lumbar canal stenosis Acute - ICD10 Problem Qualifiers (1) Fusion of spine of cervical region
[2017-07-29] MEDS ORDERED: LACTULOSE 20 GM/30 ML UDCUP PO PRN (10:04)
[2017-07-29] MEDS ORDERED: ONDANSETRON DISINTEGRATING 4 MG TAB PO PRN (10:04)
[2017-07-29] MEDS ORDERED: oxyCODONE IR 5 MG TAB PO PRN (10:04)
[2017-07-29] MEDS ORDERED: METHOCARBAMOL 750 MG TAB PO PRN (10:04)
[2017-07-29] MEDS ORDERED: MAGNESIUM HYDROXIDE 30 ML UDCUP PO PRN (10:04)
[2017-07-29] MEDS ORDERED: BISACODYL 10 MG SUPP PR PRN (10:04)
[2017-07-29] MEDS ORDERED: diphenhydrAMINE 25 MG CAP PO PRN (10:04)
[2017-07-29] MEDS ORDERED: NS W/ 20 KCl/L 1,000 ML IV SCH (10:15)
[2017-07-29] MEDS: fentaNYL 100 MCG/2 ML INJ IVP PRN ×2 (10:16→11:03)
--- NOTE | 2017-07-29 11:52 | GOP ---
[f rep st] OPERATIVE REPORT DATE OF OPERATION: 07/29/2017 SURGEON: Phoenix Merino MD NEUROSURGEON: Phoenix Merino MD PEDIATRIC DIETICIAN: DOLORES Hardin. ANESTHESIA: General endotracheal. 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 POSTOPERATIVE DIAGNOSIS: C6-7 disk herniation with central canal stenosis and spinal cord compressio n, cervical spondylitic myelopathy, obesity. PROCEDURE PERFORMED: Mini open exposure for complete C6-7 anterior cervical diskectomy and arthrodes is with a 12 mm structural PEEK interbody spacer and local autograft. Placement of a 25 mm LnK Castl eLoc-P anterior cervical plate with self-drilling screws. Use of intraoperative microscopy and fluor oscopy. FINDINGS: ESTIMATED BLOOD LOSS: 25 cc. INDICATIONS: The patient is a 67-year-old man who underwent extensive lumbar surgery who woke up wit h numbness and paresthesias in his hands and was found to have a C6-[address] disk [address] and cervical st enosis with spinal cord compression and neural foraminal impingement bilaterally at the C6-7 level. He presents now for surgical decompression and stabilization. DESCRIPTION OF PROCEDURE: After informed consent was obtained, patient was taken to the operating ro om and placed in the supine position with the head in the halter retractor system. The anterior cerv ical region was prepped and draped in a sterile fashion. After fluoroscopic localization of correct levels, the subcutaneous and intramuscular tissues were infiltrated with local anesthesia. A horizon toribio incision was then created at the level of the C6-7 interspace in a skin crease. This was carried through the platysmal layer using monopolar electrocautery and carried in the avascular plane betwee n the sternocleidomastoid and carotid sheath laterally and the strap muscles, trachea, and esophagus medially down to the prevertebral fascia, which was carefully incised with Metzenbaum scissors. Note , that the exposure took about twice as long as normal due to his obesity and very thick structures o f the neck. I was able to identify the appropriate level and confirm it with intraoperative fluorosc opy. This was also very difficult given his body habitus, but we were able to do it. The large oste ophyte was carefully removed and harvested for local autograft. The [place] distraction pins were ins erted and, while the disk space was under distraction, a complete diskectomy was performed with prepa ration of endplates and removal of posterior longitudinal ligament. Bilateral foraminotomies were pe rformed and the posteriorly protruding osteophyte was carefully removed as well. Following adequate decompression, meticulous hemostasis was achieved and the remaining endplates were carefully prepared and appropriately sized. A 12 mm structural PEEK interbody spacer packed with local autograft in [facility] was placed in the interspace under fluoroscopic image guidance. The distraction was removed an appropriately sized 25 mm LnK CastleLoc-P anterior cervical plate was then placed and secured at the C6-7 level with self drilling screws. Following verification of good position of the plate screw s and interbody spacer, the locking mechanisms were engaged. A drain was placed. The subcutaneous a nd intramuscular tissues were infiltrated with the study drug. A drain was placed and the wound was closed in a layered fashion using interrupted Vicryl sutures followed by Steri-Strips on the skin. COMPLICATIONS: None. DISPOSITION: The patient is currently in the process of being repositioned for extubation. Note, that this patient is part of the dysphagia study. /[id number]/MODL
[2017-07-29] MEDS: PRAMIPEXOLE 0.25 MG TAB PO SCH ×2 (13:16→16:27)
[2017-07-29] MEDS ORDERED: ceFAZolin 2 GM/DEXTROSE 100 ML IV SCH (14:00)
[2017-07-29 14:08] VITALS: RESP 16
[2017-07-29 15:21] VITALS: BP 152/93; PULSE 88; TEMP 97.8; O2SAT 95
[2017-07-29] MEDS ORDERED: TRIAMCINOLONE 0.1% 15 GM CRTUBE TP SCH (16:00)
[2017-07-29] MEDS ORDERED: POLYETHYLENE GLYCOL 3350 17 GM PKT PO SCH (16:00)
[2017-07-29] MEDS ORDERED: TRIAMCINOLONE 0.1% TP SCH (16:00)
[2017-07-29] MEDS ORDERED: CARVEDILOL 25 MG TAB PO SCH (18:00)
[2017-07-29] MEDS ORDERED: ZOLPIDEM TARTRATE 5 MG TAB PO SCH (21:00)
[2017-07-29] MEDS ORDERED: FAMOTIDINE 20 MG TAB PO SCH (21:00)
[2017-07-29] MEDS ORDERED: SENNOSIDES/DOCUSATE SODIUM TAB PO SCH (21:00)
[2017-07-29] MEDS ORDERED: NON-FORMULARY NEW DRUG (Eszopiclone [Lunesta] 3 MG) PO SCH (21:00)
[2017-07-30] MEDS ORDERED: CETIRIZINE 10 MG TAB PO SCH (09:00)
[2017-07-30] MEDS ORDERED: ESCITALOPRAM OXALATE 10 MG TAB PO SCH (09:00)
[2017-07-30] MEDS ORDERED: NON-FORMULARY NEW DRUG (Escitalopram Oxalate [Lexapro] 20 MG) PO SCH (09:00)
[2017-07-30] MEDS ORDERED: ALLOPURINOL 300 MG TAB PO SCH (09:00)
[2017-07-30] MEDS ORDERED: FUROSEMIDE 20 MG TAB PO SCH (09:00)
[2017-07-30] MEDS ORDERED: ATORVASTATIN CALCIUM 20 MG TAB PO SCH (09:00)
[2017-08-01] MEDS ORDERED: ENOXAPARIN 40 MG/0.4 ML SYR SC SCH (09:00)
== END 2017-07-29 18:13 | disposition home or self-care (01) ==
LOC: FSGY 05:37 → F3N 10:05
PROVIDERS: ADMIT Neurological Surgery; ATTEND Neurological Surgery
PROC: 0RG10A0 Fusion of Cervical Vertebral Joint with Interbody Fusion Device, Anterior Approach, Anterior Column, Open Approach (ICD-10-PCS; principal; 2017-07-29 07:15)
PROC: 0RT30ZZ Resection of Cervical Vertebral Disc, Open Approach (ICD-10-PCS; principal; 2017-07-29 07:15)
DX: M48.02 Spinal stenosis, cervical region (principal); M47.12 Other spondylosis with myelopathy, cervical region; M43.26 Fusion of spine, lumbar region; M50.320 Other cervical disc degeneration, mid-cervical region, unspecified level; E66.9 Obesity, unspecified; I10 Essential (primary) hypertension; G47.33 Obstructive sleep apnea (adult) (pediatric); H81.10 Benign paroxysmal vertigo, unspecified ear; G25.81 Restless legs syndrome; M10.9 Gout, unspecified
CPT/HCPCS: 22551; 72146; 76001; C1713; J0171; J0690; J1100; J1170; J2250; J2405; J2704; J3010

== ENCOUNTER → 2018-11-27 | Outpatient (CLI) | payer OTHER, MEDICARE | LOC: BHLMT 13:00 ==